=== PATIENT | male | born 1945 | race Caucasian/White ===

== ENCOUNTER → 2023-09-11 09:56 | Outpatient (REF) | payer MEDICARE, SELFPAY | LOC: HWRAD 09:56 | PROVIDERS: ATTENDING PHYSICIAN Specialist; FAMILY PHYSICIAN Family Medicine | DX: I10 Essential (primary) hypertension (principal) | CPT/HCPCS: 76770 ==

== ENCOUNTER → 2023-11-19 13:35 | Outpatient (REF) | payer MEDICARE, SELFPAY | LOC: MRI 3T 13:35 | PROVIDERS: ATTENDING PHYSICIAN Surgery; FAMILY PHYSICIAN Family Medicine | DX: R97.20 Elevated prostate specific antigen [PSA] (principal) | CPT/HCPCS: 72197; A9575 ==

== ENCOUNTER → 2023-12-12 13:03 | Outpatient (REF) | payer MEDICARE, SELFPAY | LOC: CLAB 13:03 | PROVIDERS: ATTENDING PHYSICIAN Surgery | DX: R97.20 Elevated prostate specific antigen [PSA] (principal) | CPT/HCPCS: 88305 ==

== ENCOUNTER 2024-05-07 10:33 | Emergency (ER) | payer MEDICARE, SELFPAY ==
[2024-05-07] VITALS (9 sets, daily range): BP systolic 102–147; BP diastolic 77–95; PULSE 89–95; BMI 28.2
[2024-05-07 11:17] LABS: % Basophils 0.3 % (0-2); % Eosinophils 3.3 % (0-6); % Immature Granulocytes 0.8 % (0-0.5); % Lymphocytes 9.7 % (20.5-51.1); % Monocytes 15.3 % (1.7-9.3); % Neutrophils 70.6 % (42.2-75.2); Absolute Eosinophils 0.1 10^3/uL (0-0.7); Absolute Lymphocytes 0.4 10^3/uL (1.2-3.4); Absolute Monocytes 0.6 10^3/uL (0.1-0.6); Absolute Neutrophils 2.8 10^3/uL (1.4-6.5); Hematocrit 37.1 % (39.0-52.0); Hemoglobin 12.8 g/dL (13.0-18.0); Mean Corp Hgb Conc. 34.5 g/dL (33.0-37.0); Mean Corpuscular Volume 89.8 fL (80.0-94.0); Mean Platelet Volume 11.4 fL (7.4-10.4); Nucleated Red Blood Cells % 0 % (-); Platelet Count 116 10^3/uL (130-400); Red Blood Cell Count 4.13 10^6/uL (4.70-6.10); Red Cell Dist. Width 14.3 % (11.5-14.5); White Blood Cell Count 3.9 10^3/uL (4.8-10.8)
[2024-05-07 11:26] LABS: ALT (SGPT) 25 U/L (0-50); AST (SGOT) 38 U/L (17-59); Albumin 3.8 g/dl (3.5-5.0); Alkaline Phosphatase 41 U/L (38-126); Blood Urea Nitrogen 27 mg/dl (9-20); Calcium 9.2 mg/dl (8.4-10.2); Carbon Dioxide 24 mmol/L (22-30); Chloride 99 mmol/L (98-107); Glucose 114 mg/dl (70-99); Potassium 3.8 mmol/L (3.5-5.1); Sodium 132 mmol/L (135-145); Total Bilirubin 0.9 mg/dl (0.2-1.3); Total Protein 6.2 g/dl (6.3-8.2); eGFR > 60.00
--- NOTE | 2024-05-07 14:50 | ED.GENMED ---
History of Present Illness
General
Chief Complaint: Dizziness
Source: patient
Time Seen by Provider: 05/07/24 14:31
History of Present Illness
History of Present Illness:
79-year-old male with past medical history of atrial relation status post pacer implantation, prostate cancer currently being treated with radiation and hormone therapy presents to the emergency department with his sister for evaluation after he was
going to his radiation appointment today and was found to have a rapid and irregular heartbeat, felt a little bit lightheaded and weak and was recommended to come to the ER for further evaluation. Sister reports that patient's aging box hand,
Cody, was notified and that is who advised patient to come to the ER reportedly. Patient has not had any fevers, URI-like symptoms, abdominal pain, nausea, vomiting, bowel changes or urinary symptoms. Sister notes that since patient started
the treatment he has been a little bit weaker than his usual which does not seem to be any different today. Sister does note that patient not had much to eat or drink today.
Past History
Past History
ED Past Medical History: Arrthythmia (afib on Eliquis), GERD, HTN, Hypercholesterolemia and Psychiatric (anxiety)
ED Past Surgical History: Cardiac (ablation for afib 11/01/21) and Other (colostomy w/ reversal)
Social History
Tobacco: Non-smoker
Alcohol: None
Drug: None
Personal:
Living: with family
Review of Systems
Review of Systems
All Other Systems: ROS reviewed and negative except as documented in HPI and ROS
Phy Exam
Physical Exam
Physical Exam:
GENERAL: Alert , in no apparent distress
EYE: clear conjunctiva
NECK: Supple
ENT: o/p clr, mmm.
CARDIAC: Irregularly irregular rate between 85 and 103 bpm
LUNGS: Clear breath sounds bilaterally, no acute respiratory distress,
ABDOMEN: Soft, without focal tenderness, no r/g, no cvat
NEUROLOGICAL: Alert and oriented x3
SKIN: Warm and dry, skin intact. somewhat pale
MUSCULOSKELETAL: No edema, well perfused.
PSYCH: Normal and appropriate interaction.
Scores
Heart Failure Risk
Heart Failure Risk Score: Not Applicable
Heart Score for Chest Pain Patients
STEMI patient?: Not applicable
Withdrawal Assessment of Alcohol
Withdrawal Assessment Completed?: Not applicable
Course
Orders/Labs/Results
Orders:
Orders
05/07/24 10:39
Electrocardiogram (*1) Urgent
Reason for Study: Vertigo / Dizzy
EKG- Treatment ONCE
05/07/24 10:51
Complete Blood Count/With Diff Urgent
Comprehensive Metabolic Panel Urgent
05/07/24 14:35
Orthostatic VS- Treatment ONCE
0.9% Sodium Chloride 1000 ml [Nss] 1,000 ml IV BOLUS
05/07/24 14:52
Interrogate Pacemaker- Treatment ONCE
05/07/24 14:57
COVID-19 Antigen Urgent
Source: Nasal Swab
Influenza A+B Rapid Molecular Urgent
NAKITA Source: Nasal Swab
Specimen Description:
Abnormal Lab Results
05/07/24
10:51
WBC 3.9 L 10^3/uL
(4.8-10.8)
RBC 4.13 L 10^6/uL
(4.70-6.10)
Hgb 12.8 L g/dL
(13.0-18.0)
Hct 37.1 L %
(39.0-52.0)
Plt Count 116 L 10^3/uL
(130-400)
MPV 11.4 H fL
(7.4-10.4)
Absolute Lymphs (auto) 0.4 L 10^3/uL
(1.2-3.4)
Immature Gran % 0.8 H %
(0-0.5)
Lymphocytes % 9.7 L %
(20.5-51.1)
Monocytes % 15.3 H %
(1.7-9.3)
Sodium 132 L mmol/L
(135-145)
BUN 27 H mg/dl
(9-20)
Glucose 114 H mg/dl
(70-99)
Total Protein 6.2 L g/dl
(6.3-8.2)
05/07/24 10:51
05/07/24 10:51
Vital Signs
Initial and Last Documented VS:
Initial Vital Signs
Temp Pulse Resp BP Pulse Ox
98.1 F 95 16 131/95 98
05/07/24 10:36 05/07/24 10:36 05/07/24 10:36 05/07/24 10:36 05/07/24 10:36
Last Documented Vital Signs
Temp Pulse Resp BP Pulse Ox
98.1 F 98 16 102/82 80
05/07/24 10:36 05/07/24 16:00 05/07/24 16:00 05/07/24 16:00 05/07/24 16:00
MDM/Problems Addressed
Differential Diagnosis Includes:
Atrial fibrillation with rapid ventricular response, medication side effect, dehydration, viral syndrome, other cardiac arrhythmia/dysrhythmia
MDM/Problems Addressed:
79-year-old male presenting to the emergency department for evaluation of what appears to be atrial fibrillation with rapid ventricular response that was noticed at radiation appointment today. By the time patient arrived to the ER his atrial
fibrillation appears to be rate controlled now. Patient reports some mild generalized weakness but has had this since starting his prostate cancer treatments. Hemodynamically stable. Labs ordered on arrival show a mild leukopenia of 3.9 which
could be either virally induced or related to current cancer treatments. There is a mild prerenal azotemia as well. EKG does show A-fib at a rate of 105 bpm but no acute ischemic changes. Will check viral studies and interrogate patient's
pacemaker. Disposition pending
Chronic conditions affecting care: Arrhythmia
Acute Exacerbation and/or Progression of Chronic Illness: Arrhythmia
*Pulse Oximetry
Patient hypoxic: no
*EKG
Heart Rate: 105
Rate: tachycardiac
Rhythm: a-fib
[place]: normal axis
Ischemia: T-wave inversion (V4 through V6)
*Wine [employer]chant Interpretation
Rate: normal
Rhythm: a-fib and PVC's
*Critical Care Note
Total Time (30-74mins, 75-104mins- exclusive of procedures): Not Applicable
Data Reviewed
Review of Other/Old Records Reveals: Labs and Records
Patient Management
Escalation/DeEscalation of care consider admission/obs:
Patient's pacemaker report shows episodes of atrial tachycardia/atrial fibrillation but no evidence for ventricular tachycardia or fibrillation. COVID and flu testing negative. Patient remains hemodynamically stable and at this time stable for
discharge home and continued outpatient management with his oncology team and primary care provider.
ED Attending Note
-
Portions of this chart may have been created with voice recognition software.� Occasional wrong word or��sound alike� substitutions may have occurred due to the inherent limitations of voice recognition software.
Discharge Plan
Departure
Patient Disposition: Home (Routine Discharge)
Date of Disposition: 05/07/24
Time of Disposition: 16:03
Patient with high blood pressure during this ER visit?: Yes
Discharge Problem:
Generalized weakness, Atrial fibrillation
Instructions: Weakness - ED discharge instructions
Prescriptions:
No Action
atorvastatin 10 MG tablet
10 mg PO DAILY@1200
enalapril maleate 20 MG tablet
20 mg PO BID
lorazepam 0.5 MG tablet
0.5 mg PO DAILYPRN PRN (Reason: anxiety)
amlodipine 10 MG tablet
10 mg PO DAILY@1200
fenofibrate nanocrystallized 48 MG tablet
48 mg PO DAILY@1200
Eliquis 5 MG tablet
5 mg PO BID
acetaminophen 500 mg Tablet
500 mg PO Q6H PRN (Reason: pain)
Systane (PF) 0.4-0.3 % Dropperette
1 drp OPHTHALMIC (EYE) 6XD PRN (Reason: dryness)
metoprolol succinate 50 mg tablet extended release 24 hr
50 mg PO BID Qty: 180 5RF
Referrals:
Dwight Metcalf, [Family Provider] -
Interventions
Interventions:
*Risk Screen - Suicide Last Done: 05/07/24 10:36
*General Assessment Last Done: 05/07/24 14:39
*Neglect/Abuse Screening Last Done: 05/07/24 10:36
*ED COVID-19 Vaccine History Last Done: 05/07/24 14:39
ED- Neurological Assessment Last Done: 05/07/24 14:39
Discharge Date and Time
Print Language: SALVADOREAN
[2024-05-07] MEDS: NSS 1000 IV (14:55)
[2024-05-07 15:28] LABS: COVID-19 Antigen Negative (Negative)
== END 2024-05-07 16:26 | disposition home or self-care (01) ==
LOC: EMR 10:33
PROVIDERS: Emergency Medicine; Physician Assistant Medical; EMERGENCY PHYSICIAN Emergency Medicine; FAMILY PHYSICIAN Family Medicine
DX: R53.1 Weakness (principal); I48.91 Unspecified atrial fibrillation; R42 Dizziness and giddiness; K21.9 Gastro-esophageal reflux disease without esophagitis; I10 Essential (primary) hypertension; E78.00 Pure hypercholesterolemia, unspecified; F41.9 Anxiety disorder, unspecified; Z79.01 Long term (current) use of anticoagulants; Z85.46 Personal history of malignant neoplasm of prostate; Z95.0 Presence of cardiac pacemaker
CPT/HCPCS: 99283; 96360; 80053; 85025; 87502; 87811; 93005

== ENCOUNTER → 2024-05-26 02:00 | Outpatient (REF) | payer MEDICARE, SELFPAY | LOC: MRI 02:00 | PROVIDERS: ATTENDING PHYSICIAN Family Medicine | DX: I48.91 Unspecified atrial fibrillation (principal); R41.3 Other amnesia | CPT/HCPCS: 70551 ==

== ENCOUNTER 2024-09-07 10:39 | Outpatient (RCR) | payer MEDICARE, SELFPAY | END 2024-09-07 23:59 | disposition home or self-care (01) | LOC: RPT 10:39 | PROVIDERS: ATTENDING PHYSICIAN Family Medicine Geriatric Medicine; FAMILY PHYSICIAN Internal Medicine | DX: C61 Malignant neoplasm of prostate (principal); Z79.818 Long term (current) use of other agents affecting estrogen receptors and estrogen levels | CPT/HCPCS: 97163; 97530 ==

== ENCOUNTER 2024-10-11 14:11 | Outpatient (RCR) | payer MEDICARE, SELFPAY | END 2024-10-11 23:59 | disposition home or self-care (01) | LOC: RPT 14:11 | PROVIDERS: ATTENDING PHYSICIAN Family Medicine Geriatric Medicine; FAMILY PHYSICIAN Internal Medicine | DX: C61 Malignant neoplasm of prostate (principal); R41.3 Other amnesia; N39.41 Urge incontinence; N39.43 Post-void dribbling; R15.9 Full incontinence of feces; R35.1 Nocturia; Z79.818 Long term (current) use of other agents affecting estrogen receptors and estrogen levels | CPT/HCPCS: 97110; 97112; 97116; 97530 ==

== ENCOUNTER 2024-11-09 13:54 | Outpatient (RCR) | payer MEDICARE, SELFPAY | END 2024-11-09 23:59 | disposition home or self-care (01) | LOC: RPT 13:54 | PROVIDERS: ATTENDING PHYSICIAN Family Medicine Geriatric Medicine; FAMILY PHYSICIAN Internal Medicine | DX: C61 Malignant neoplasm of prostate (principal); R41.3 Other amnesia; N39.41 Urge incontinence; N39.43 Post-void dribbling; R15.9 Full incontinence of feces; R35.1 Nocturia; Z79.818 Long term (current) use of other agents affecting estrogen receptors and estrogen levels | CPT/HCPCS: 97110; 97112; 97140; 97530 ==

== ENCOUNTER 2024-11-18 14:58 | Outpatient (RCR) | payer MEDICARE, SELFPAY | END 2024-11-18 23:59 | disposition home or self-care (01) | LOC: RPT 14:58 | PROVIDERS: ATTENDING PHYSICIAN Family Medicine Geriatric Medicine; FAMILY PHYSICIAN Internal Medicine | DX: C61 Malignant neoplasm of prostate (principal); R41.3 Other amnesia; N39.41 Urge incontinence; N39.43 Post-void dribbling; R15.9 Full incontinence of feces; R35.1 Nocturia; Z79.818 Long term (current) use of other agents affecting estrogen receptors and estrogen levels | CPT/HCPCS: 97112; 97530 ==

== ENCOUNTER 2024-12-02 13:46 | Outpatient (RCR) | payer MEDICARE, SELFPAY | END 2024-12-02 23:59 | disposition home or self-care (01) | LOC: RPT 13:46 | PROVIDERS: ATTENDING PHYSICIAN Psychiatry & Neurology Neurology; FAMILY PHYSICIAN Nurse Practitioner Family | DX: C61 Malignant neoplasm of prostate (principal); Z79.818 Long term (current) use of other agents affecting estrogen receptors and estrogen levels; R41.3 Other amnesia; N39.43 Post-void dribbling; R15.9 Full incontinence of feces; R35.1 Nocturia; Z73.6 Limitation of activities due to disability | CPT/HCPCS: 97163; 97530 ==

== ENCOUNTER 2025-01-14 09:17 | Outpatient (RCR) | payer MEDICARE, SELFPAY | END 2025-01-14 23:59 | disposition home or self-care (01) | LOC: RPT 09:17 | PROVIDERS: ATTENDING PHYSICIAN Psychiatry & Neurology Neurology; FAMILY PHYSICIAN Nurse Practitioner Family | DX: G20.A1 Parkinson's disease without dyskinesia, without mention of fluctuations (principal); Z73.6 Limitation of activities due to disability; R26.89 Other abnormalities of gait and mobility; R25.1 Tremor, unspecified | CPT/HCPCS: 97110; 97112; 97116; 97530 ==

== ENCOUNTER 2025-01-28 12:08 | Outpatient (RCR) | payer MEDICARE, SELFPAY | END 2025-02-11 10:26 | disposition home or self-care (01) | LOC: RPT 12:08 | PROVIDERS: ATTENDING PHYSICIAN Psychiatry & Neurology Neurology; FAMILY PHYSICIAN Nurse Practitioner Family | DX: G20.A1 Parkinson's disease without dyskinesia, without mention of fluctuations (principal); Z73.6 Limitation of activities due to disability; R26.89 Other abnormalities of gait and mobility; R25.1 Tremor, unspecified | CPT/HCPCS: 93460; 97110; 97112; 97116; 97530; 99152; 99153; C1769; C1894; Q9967 ==

== ENCOUNTER 2025-01-28 15:40 | Emergency (ER) | payer MEDICARE, SELFPAY ==
[2025-01-28 15:55] VITALS: BP 143/95
[2025-01-28 16:16] LABS: Hematocrit 39.9 % (39.0-52.0); Hemoglobin 13.1 g/dL (13.0-18.0); Mean Corp Hgb Conc. 32.8 g/dL (33.0-37.0); Mean Corpuscular Volume 92.4 fL (80.0-94.0); Nucleated Red Blood Cells % 0 % (-); Platelet Count 160 10^3/uL (130-400); Red Cell Dist. Width 18.5 % (11.5-14.5)
[2025-01-28 16:44] LABS: ALT (SGPT) < 10 U/L (0-50); AST (SGOT) 29 U/L (17-59); Albumin 4.2 g/dl (3.5-5.0); Alkaline Phosphatase 40 U/L (38-126); Blood Urea Nitrogen 30 mg/dl (9-20); Calcium 9.1 mg/dl (8.4-10.2); Carbon Dioxide 26 mmol/L (22-30); Chloride 100 mmol/L (98-107); Glucose 103 mg/dl (70-99); Potassium 4.0 mmol/L (3.5-5.1); Sodium 135 mmol/L (135-145); Total Protein 6.5 g/dl (6.3-8.2); eGFR 56.23
[2025-01-28 20:44] VITALS: BMI 26.2
[2025-01-28 20:46] VITALS: BP 150/94
--- NOTE | 2025-01-28 21:18 | ED.GENMED ---
History of Present Illness
General
Chief Complaint: Heart Rate Problem
Source: patient
Exam Limitations: none
Time Seen by Provider: 01/28/25 21:17
Nursing documentation reviewed up to this point in time: agreed with
History of Present Illness
History of Present Illness:
Patient is a 79-year-old male with history of A-fib on Eliquis presents to the ER for evaluation. Patient reports he was told physical therapy that his heart rate was 150 today. Last week his heart rate was elevated as well. Since then he saw his
family doctor and also was seen by cardiology([facility] cardiology on Friday 4 days ago) his metoprolol was increased from 50 mg twice daily to 75 mg twice daily. He is asymptomatic. Patient presented mildly tachycardic here however on exam
patient is in the 90s. No associated shortness of breath or chest pain. Patient was told and has been monitoring his heart rate at home and has been mostly under 100. Patient is on anticoagulation, Eliquis and has not missed a dose. Denies any
recent illness fever or chills.
Past History
Past History
ED Past Medical History: Arrthythmia (afib on Eliquis), GERD, HTN, Hypercholesterolemia and Psychiatric (anxiety)
ED Past Surgical History: Cardiac (ablation for afib 11/01/21) and Other (colostomy w/ reversal)
Social History
Tobacco: Non-smoker
Alcohol: None
Drug: None
Personal:
Living: with family
Phy Exam
General Physical Exam
General Presentation: no apparent distress
General age: appears stated age
General Skin: warm and dry
General Habitus: normal
General Mental: alert
General Hydration: appears well hydrated
Cardiovascular Exam
Cardiovascular Exam: occasionally irregular
Pulmonary Exam
Pulmonary Exam: lungs clear and no respiratory distress
Neurological Exam
Neurological Exam: alert and oriented x3
Musculoskeletal Exam
Musculoskeletal Exam: full ROM
Skin Exam
Skin Exam: normal color and warm/dry
Psychiatric Exam
Psychiatric Exam: normal mood/affect
Course
Orders/Labs/Results
Orders:
Orders
01/28/25 15:41
Electrocardiogram (*1) Urgent
Reason for Study: Atrial Fibrillation
01/28/25 15:42
EKG- Treatment ONCE
01/28/25 16:09
Complete Blood Count/With Diff Urgent
Comprehensive Metabolic Panel Urgent
Abnormal Lab Results
01/28/25
16:09
RBC 4.32 L 10^6/uL
(4.70-6.10)
MCHC 32.8 L g/dL
(33.0-37.0)
RDW 18.5 H %
(11.5-14.5)
MPV 11.3 H fL
(7.4-10.4)
Absolute Lymphs (auto) 0.4 L 10^3/uL
(1.2-3.4)
Absolute Monos (auto) 0.7 H 10^3/uL
(0.1-0.6)
Neutrophils % 79.0 H %
(42.2-75.2)
Lymphocytes % 7.6 L %
(20.5-51.1)
Monocytes % 11.8 H %
(1.7-9.3)
BUN 30 H mg/dl
(9-20)
Glucose 103 H mg/dl
(70-99)
01/28/25 16:09
01/28/25 16:09
Vital Signs
Initial and Last Documented VS:
Initial Vital Signs
Temp Pulse Resp BP Pulse Ox
98.6 F 101 16 143/95 97
01/28/25 15:55 01/28/25 15:55 01/28/25 15:55 01/28/25 15:55 01/28/25 15:55
Last Documented Vital Signs
Temp Pulse Resp BP Pulse Ox
98.6 F 97 17 150/94 93
01/28/25 15:55 01/28/25 21:45 01/28/25 21:30 01/28/25 20:46 01/28/25 21:45
Cargoman consulted with Physician
Cargoman consulted with physician?: Yes
Name of Physician Consulted: Santiago
MDM/Problems Addressed
Differential Diagnosis Includes:
Not limited to rapid A-fib
MDM/Problems Addressed:
Patient had a history of A-fib and was told his heart rate was elevated today at physical therapy. He was told his heart rate was 150. He had no complaints. Recently his Lopressor was increased from 50 mg twice daily to 75 mg twice daily. He
started this increased on Friday 4 days ago. He has seen both his per assessment nurse Dr. Hwang cardiology as well as his family doctor. Patient presents here awake alert no acute distress on my exam his heart rates in the 90s he is asymptomatic. He has
not skipped a dose of his Eliquis. He is well-appearing. He is afebrile with a normal white count stable hemoglobin BUN elevated however elevated in the past normal creatinine.
case d/c w/ ED physician will discharge home as he is controlled and anticoagulated instructed to follow-up with cardiology next week.
Chronic conditions affecting care:
A-fib on Eliquis.
*Pulse Oximetry
SaO2: 94
Oxygen Mode of Delivery: Room air
Patient hypoxic: no
*Critical Care Note
Total Time (30-74mins, 75-104mins- exclusive of procedures): Not Applicable
ED Attending Note
-
Portions of this chart may have been created with voice recognition software.� Occasional wrong word or��sound alike� substitutions may have occurred due to the inherent limitations of voice recognition software.
Discharge Plan
Departure
Patient Disposition: Home (Routine Discharge)
Date of Disposition: 01/28/25
Time of Disposition: 22:05
Patient with high blood pressure during this ER visit?: Yes
Condition: Fair
Covid-19: Not Applicable
Discharge Problem:
Atrial fibrillation
Instructions: Atrial Fibrillation (DC), BLOOD PRESSURE
Prescriptions:
No Action
atorvastatin 10 MG tablet
10 mg PO DAILY@1200
enalapril maleate 20 MG tablet
20 mg PO BID
lorazepam 0.5 MG tablet
0.5 mg PO DAILYPRN PRN (Reason: anxiety)
amlodipine 10 MG tablet
10 mg PO DAILY@1200
fenofibrate nanocrystallized 48 MG tablet
48 mg PO DAILY@1200
Eliquis 5 MG tablet
5 mg PO BID
acetaminophen 500 mg Tablet
500 mg PO Q6H PRN (Reason: pain)
Systane (PF) 0.4-0.3 % Dropperette
1 drp OPHTHALMIC (EYE) 6XD PRN (Reason: dryness)
metoprolol succinate 50 mg tablet extended release 24 hr
50 mg PO BID Qty: 180 5RF
Referrals:
Augie Flowers CRNP [Family Provider, Family Practice]
Nito Ross MD [Active, Cardiology]
Activity Restrictions/Additional Instructions:
As discussed to stay well-hydrated over the weekend avoid caffeine. Continue to take your new increased dose of metoprolol along with all of your other medicines. Call your per assessment nurse next week to be reevaluated. Return if any worsening of
symptoms.
Interventions
Interventions:
*Risk Screen - Suicide Last Done: 01/28/25 15:56
*General Assessment Last Done: 01/28/25 20:44
*Neglect/Abuse Screening Last Done: 01/28/25 15:56
*ED- Fall Risk Assessment Last Done: 01/28/25 20:44
*ED COVID-19 Vaccine History Last Done: 01/28/25 20:44
*ED Influenza Vaccine History Last Done: 01/28/25 20:44
ED- Cardiac Assessment Last Done: 01/28/25 20:44
ED- Pulmonary Assessment Last Done: 01/28/25 20:44
Discharge Date and Time
Print Language: IRISH
[2025-01-28 22:00] VITALS: BP 149/97
== END 2025-01-28 22:19 | disposition home or self-care (01) ==
LOC: EMR 15:40
PROVIDERS: Student in an Organized Health Care Education/Training Program; EMERGENCY PHYSICIAN Emergency Medicine; FAMILY PHYSICIAN Nurse Practitioner Family
DX: I48.91 Unspecified atrial fibrillation (principal); E78.00 Pure hypercholesterolemia, unspecified; F41.9 Anxiety disorder, unspecified; I10 Essential (primary) hypertension; Z79.01 Long term (current) use of anticoagulants; Z79.899 Other long term (current) drug therapy; Z93.3 Colostomy status; Z95.0 Presence of cardiac pacemaker
CPT/HCPCS: 99283; 80053; 85025; 93005

== ENCOUNTER 2025-02-07 20:24 | Inpatient (IN) | payer MEDICARE, SELFPAY ==
[2025-02-07] VITALS (11 sets, daily range): BP systolic 112–139; BP diastolic 76–106; BMI 26.7
--- NOTE | 2025-02-07 15:58 | ED.GENMED ---
History of Present Illness
General
Chief Complaint: Heart Rate Problem
Time Seen by Provider: 02/07/25 15:58
History of Present Illness
History of Present Illness:
FOCUSED PAST MEDICAL HISTORY
- Atrial fibrillation on Eliquis, Parkinson's
REVIEW OF OLD RECORDS
- I reviewed note from Mitul Humphreys NP indicating that the patient was seen by him earlier today and dose of metoprolol had been titrated up to 100 mg twice daily due to uncontrolled heart rate and was found to have heart rates in the
130s today. The sister also reported confusion over the weekend.
Note:
CHIEF COMPLAINT(S)
Confusion and increased shortness of breath.
HISTORY OF PRESENT ILLNESS
The patient is a 79-year-old male with a history of atrial fibrillation and Parkinsons disease presenting with confusion, increased shortness of breath, and coughing. His sister reports that the confusion has been ongoing over the weekend, worsening
after an Eligard injection, with hallucinations and increased confusion compared to previous injections. The patient typically experiences shortness of breath only with exertion, such as climbing steps, but currently experiences it at rest. He was
evaluated by his primary care physician today.
The patient was in the emergency department on January 28. During that visit, the patients heart rate was normalized before discharge. Since then, his symptoms have persisted and worsened, prompting today's visit. There is a concern about
dehydration, and his sister indicates he has been coughing and has experienced urinary symptoms like frequency and urgency since completing radiation for prostate cancer in May. The patient is also tachycardic with an irregular rhythm, exhibits
bradykinesia, and appears slightly confused but is answering questions appropriately.
PAST MEDICAL AND SURGICAL HISTORY
History of atrial fibrillation, Parkinsons disease, and prostate cancer treated with radiation.
CHRONIC MEDICAL CONDITIONS SIGNIFICANTLY AFFECTING CARE
1. Atrial fibrillation
2. Parkinsons disease
SOCIAL DETERMINANTS AFFECTING HEALTH
The sister reports that the patient lives at home.
MEDICATIONS
The patient is currently taking Apixaban (Eliquis) and has recently been increased to 100 mg of an unspecified medication twice daily upon consultation with Kate Flower.
REVIEW OF SYSTEMS
- Neurological: Confusion, hallucinations
- Respiratory: Shortness of breath at rest
- Urinary: Frequency and urgency ongoing since radiation treatment for prostate cancer
PHYSICAL EXAM
General: Alert, no acute distress.
Skin: Warm, dry. Appears somewhat pale
Head: Normocephalic, atraumatic.
Neck: Supple, trachea midline.
Eye, Ears, Nose, Mouth, and Throat: Oral mucosa moist.
Cardiovascular: Normal peripheral perfusion, no edema, tachycardia with irregular rhythm noted.
Respiratory: Respirations are non-labored.
Gastrointestinal: Abdomen nondistended.
Back: Normal range of motion, normal alignment.
Musculoskeletal: Equally decreased active ROM, normal strength.
Neurological: Alert and oriented but appears to be slightly confused at times, no focal neurological deficit observed. Evidence of bradykinesia.
Psychiatric: Cooperative, appropriate mood & affect.
PROBLEM LIST
Acute:
- Confusion
- Shortness of breath
- Tachycardia
Chronic:
- Atrial fibrillation
- Parkinsons disease
PLAN
1. Administer fluids to address possible dehydration.
2. Obtain blood work.
3. Conduct a computed tomography scan of the brain to evaluate confusion.
4. Perform a chest X-ray to investigate respiratory symptoms.
5. Administer medication to lower heart rate.
6. Collect urine sample for analysis.
DIFFERENTIAL DIAGNOSIS
The Differential Diagnosis includes, in no particular order and is not limited to:
1. Exacerbation of atrial fibrillation
2. Pulmonary embolism
3. Urinary tract infection
4. Dehydration
5. Congestive heart failure
6. Parkinsons disease-related complications
7. Medication side effects
8. Delirium
9. Hypoxia
10. Anemia
RADIOLOGY
- CT head personally reviewed and I see no hemorrhage
EKG
- A-fib rate of 107, occasional ventricular paced beats, lateral T wave abnormality
LABS
- CBC unremarkable, BNP 13,800, troponin 0.050, BUN 39
UPDATE
-SUMMARY OF ENCOUNTER
The patient was seen in the emergency department due to confusion, increased shortness of breath, and tachycardia. Upon evaluation, the patient was placed on a diltiazem drip to control the heart rate due to rapid atrial fibrillation. A CT scan of
the brain and a chest X-ray were performed, both showing no clear abnormalities according to my preliminary review, pending official radiologist reading. Elevated BNP levels were noted, indicating possible heart failure, leading to consideration of
admission for further management.
DISPOSITION
Admit
ASSESSMENT
Rapid atrial fibrillation with elevated BNP suggesting possible heart failure.
PLAN
Recommend inpatient admission to manage atrial fibrillation and further evaluate the elevated BNP levels.
INDEPENDENT REVIEW OF LABS AND INTERPRETATION OF TESTS
My independent review of the BNP test indicates elevated levels, suggesting potential heart failure.
My independent interpretation of the CT scan of the brain shows no clear abnormalities.
My independent interpretation of the chest X-ray shows no clear abnormalities.
MEDICATION RECONCILIATION
The patient is currently on a diltiazem drip to manage rapid atrial fibrillation.
MEDICAL DECISION MAKING
-Complexity of Data Reviewed: Chronic conditions affecting care [atrial fibrillation, Parkinson�s disease, prostate cancer] with consideration of potential heart failure based on elevated BNP levels.
-Data:
Category 1: Tests and documents reviewed include CT scan of the brain, chest X-ray, and BNP levels.
Category 2: Information was corroborated with assistance from the patients sister, who provided a history of the present illness and symptoms.
-Risk: Consideration of Admission/Observation: Escalation of care including admission/observation was considered given the complexity and risk of the patients presenting complaint, exam findings, and their underlying comorbidities. The elevated BNP
levels are of particular concern for heart failure. Admission is recommended for monitoring and management of atrial fibrillation and evaluation of heart failure.
DIAGNOSIS
-Rapid atrial fibrillation failing outpatient management
-Confusion
-Transient shortness of breath
Past History
Past History
ED Past Medical History: Arrthythmia (afib on Eliquis), GERD, HTN, Hypercholesterolemia and Psychiatric (anxiety)
ED Past Surgical History: Cardiac (ablation for afib 11/01/21) and Other (colostomy w/ reversal)
Social History
Tobacco: Non-smoker
Alcohol: None
Drug: None
Personal:
Living: with family
Phy Exam
Physical Exam
Physical Exam:
See HPI
Course
Orders/Labs/Results
Orders:
Orders
02/07/25 15:35
EKG [Electrocardiogram (*1)] Urgent
Reason for Study: Chest Pain
EKG- Treatment ONCE
02/07/25 15:51
Complete Blood Count/With Diff Urgent
Comprehensive Metabolic Panel Urgent
Magnesium Urgent
NT-proBNP Urgent
TSH Reflex To Free T4 Urgent
Troponin I Urgent
02/07/25 16:12
0.9% Sodium Chloride 500 ml [Nss] 500 ml IV BOLUS
02/07/25 16:13
CT Head W/o Iv Contrast Urgent
Comment:
Reason For Exam: alt ms
Diltiazem HCl [Cardizem] 10 mg IV NOW STA
CR Chest - 2 Views Urgent
Comment:
Reason For Exam: sob
02/07/25 16:15
Diltiazem 125 mg/125 ml Nss [Cardizem] 125 mg in 125 ml IV PER PROTOCOL
Initial dose in mg/hr, then titrate:: 5
Titrate to keep:: Heart rate 80-100 bpm
Titrate by mg/hr:: 5 mg/hr
Frequency of titrations (minutes):: 15
Maximum dose in mg/hr:: 15
02/07/25 17:15
Urinalysis Reflex To Culture Urgent
Date Specimen was Collected: 02/07/25
Time Specimen was Collected: 17:15
Urine Microscopic Reflex Cult Urgent
Urine Culture Urgent
NAKITA Source: U
Specimen Description:
Date Specimen was Collected: 02/07/25
Time Specimen was Collected: 17:15
Abnormal Lab Results
02/07/25 02/07/25
15:51 17:15
RBC 4.63 L 10^6/uL
(4.70-6.10)
MCHC 32.9 L g/dL
(33.0-37.0)
RDW 19.9 H %
(11.5-14.5)
MPV 11.8 H fL
(7.4-10.4)
Absolute Lymphs (auto) 0.3 L 10^3/uL
(1.2-3.4)
Immature Gran % 0.6 H %
(0-0.5)
Neutrophils % 80.2 H %
(42.2-75.2)
Lymphocytes % 6.1 L %
(20.5-51.1)
Monocytes % 11.7 H %
(1.7-9.3)
Sodium 134 L mmol/L
(135-145)
BUN 39 H mg/dl
(9-20)
Glucose 135 H mg/dl
(70-99)
Troponin I 0.050 H* ng/ml
Urine Ketones 1+ A
(Negative)
Ur Occult Blood Reflex 4+ A
(Negative)
Urine RBC 80-90 A /HPF
(0-2)
Urine Bacteria (Reflex) Many A
(Negative)
Urine Albumin (Reflex) 3+ A
(Neg - Trace)
02/07/25 15:51
02/07/25 15:51
Vital Signs
Initial and Last Documented VS:
Initial Vital Signs
Temp Pulse Resp BP Pulse Ox
36.7 C 136 20 135/106 96
02/07/25 15:37 02/07/25 15:37 02/07/25 15:37 02/07/25 15:37 02/07/25 15:37
Last Documented Vital Signs
Temp Pulse Resp BP Pulse Ox
36.7 C 91 17 134/99 94
02/07/25 15:37 02/07/25 19:00 02/07/25 19:00 02/07/25 19:00 02/07/25 16:25
*Pulse Oximetry
SaO2: 96
Oxygen Mode of Delivery: Room air
Patient hypoxic: no
*Critical Care Note
Total Time (30-74mins, 75-104mins- exclusive of procedures): Not Applicable
ED Attending Note
-
Portions of this chart may have been created with voice recognition software.� Occasional wrong word or��sound alike� substitutions may have occurred due to the inherent limitations of voice recognition software.
Discharge Plan
Departure
Prescriptions:
No Action
atorvastatin 10 MG tablet
10 mg PO QPM
enalapril maleate 20 MG tablet
20 mg PO BID
fenofibrate nanocrystallized 48 MG tablet
48 mg PO QPM
Eliquis 5 MG tablet
5 mg PO BID
metoprolol succinate [Toprol XL] 50 mg tablet extended release 24 hr
100 mg PO BID
donepezil 5 mg Tablet
5 mg PO HS
cyanocobalamin (vitamin B-12) 1,000 mcg Tablet
1,000 mcg PO DAILY
amlodipine [Norvasc] 2.5 mg Tablet
2.5 mg PO DAILY
carbidopa-levodopa 25-100 mg Tablet
1 tab PO TID@08,12,16
Eligard (3 month) 22.5 mg Syringe
22.5 mg SC [id number]
cholecalciferol (vitamin D3) [Vitamin D3] 25 mcg (1,000 unit) Tablet
25 mcg PO DAILY
mirabegron [Myrbetriq] 25 mg Tablet Extended Release 24 Hr
25 mg PO QPM
Referrals:
Augie Flowers CRNP [Family Provider, Family Practice]
Interventions
Interventions:
*General Assessment Last Done: 02/07/25 15:37
*Neglect/Abuse Screening Last Done: 02/07/25 17:00
*ED COVID-19 Vaccine History Last Done: 02/07/25 17:00
*ED Influenza Vaccine History Last Done: 02/07/25 17:00
ED- Cardiac Assessment Last Done: 02/07/25 16:41
ED- Pulmonary Assessment Last Done: 02/07/25 16:41
Discharge Date and Time
Print Language: YORUBA
[2025-02-07 16:03] LABS: Hematocrit 43.1 % (39.0-52.0); Hemoglobin 14.2 g/dL (13.0-18.0); Mean Corp Hgb Conc. 32.9 g/dL (33.0-37.0); Mean Corpuscular Volume 93.1 fL (80.0-94.0); Nucleated Red Blood Cells % 0.6 % (-); Platelet Count 153 10^3/uL (130-400); Red Cell Dist. Width 19.9 % (11.5-14.5)
[2025-02-07 16:17] LABS: ALT (SGPT) 10 U/L (0-50); AST (SGOT) 42 U/L (17-59); Albumin 4.3 g/dl (3.5-5.0); Alkaline Phosphatase 50 U/L (38-126); Blood Urea Nitrogen 39 mg/dl (9-20); Calcium 9.6 mg/dl (8.4-10.2); Carbon Dioxide 25 mmol/L (22-30); Chloride 102 mmol/L (98-107); Glucose 135 mg/dl (70-99); Magnesium 1.8 mg/dl (1.6-2.3); Potassium 3.7 mmol/L (3.5-5.1); Sodium 134 mmol/L (135-145); Total Protein 6.6 g/dl (6.3-8.2); eGFR 56.23
[2025-02-07 16:26] LABS: Troponin I 0.050 ng/ml
[2025-02-07] MEDS: NSS 500 IV (16:32)
[2025-02-07] MEDS: CARDIZEM 125 IV (16:33)
[2025-02-07] MEDS: CARDIZEM 10 MG IV (16:33)
[2025-02-07 17:23] LABS: Urine Character Clear (Clear)
[2025-02-07 17:28] LABS: Urine Red Blood Cell 80-90 /HPF (0-2); Urine Squamous Cell 0-2 /LPF (Few)
--- NOTE | 2025-02-07 19:25 | HPS.HSE ---
Family Physician
-
Family Physician: PAULA Conde
Chief Complaint
-
Elevated heart rate, shortness of breath, increased confusion
History of Present Illness
79-year-old male brought by his sister for increased confusion, shortness of breath and coughing over the weekend after an Eligard injection. She also reports he had hallucinations that been going on since November after starting carbidopa
levodopa for Parkinson's.. He has history of dementia. He was noted to be in rapid A-fib with RVR heart rate 150 bpm possibly has not been taking his increased dose of metoprolol due to confusion of meds. His sister was concerned about
dehydration has also been experience frequency urgency since completing radiation for prostate cancer in May. He spoke with cardiology on 01 21 his metoprolol was increased to 75 mg twice daily then the the patient was seen at [facility]
cardiology on 01/24/2025 due to elevated heart rate 150 at physical therapy his metoprolol was increased to 100 mg twice daily. He was seen in the ER on 01/28/2025 with heart rate in the 90s he was discharged on his increased dose metoprolol
succinate 100 mg twice daily instructed to avoid caffeine and follow-up with cardiology. Today he was seen by his general practitioner where he was noted to be tired short of breath and tachycardic with heart rate of 150 bpm. His sister states he
has had some increased confusion over this weekend would not allow her to touch his medications she found him in his room with multiple medications on his dresser. She is unsure whether he has been mixing them up or taking them appropriately.
Patient is oriented to name, place, history he denies headache, dizziness, chest pain, palpitations, cough, shortness of breath, abdominal pain, nausea, vomit, diarrhea, urinary symptoms.
He has past medical history of A-fib, A-fib ablation 11/03/2021, Dementia, Anxiety Parkinson's disease, HTN, HLD, GERD, tachy/bradycardia syndrome status post pacemaker 12/04/2022, prostate cancer s/p radiation May 2024 with chronic urinary
frequency and urgency, colostomy with reversal, MIKE noncompliant with CPAP, former smoker
Medical History
Past Medical History
Past Medical History: Reports Other
Additional Past Medical History:
1. Persistent atrial fibrillation, status post cardioversion x4 and ablation 10/2021; pharmacological therapy with Metoprolol Succinate, oral anticoagulation with Eliquis.
2. 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
3. Hypertension.
4. Dyslipidemia.
5. Obstructive sleep apnea, non-compliant with CPAP.
6. Diverticulitis, status post colostomy and subsequent reversal 2002.
7. Arthritis.
8. BPH.
9. Prediabetes.
10. Anxiety.
11. Bilateral dry eyes.
12. Remote history of tobacco abuse.
13. Prostate cancer status post radiation May 2024 with chronic urinary frequency urgency
Past Surgical History: Reports Other
Additional Past Surgical History:
1. Cardioversion x4.
2. Atrial fibrillation ablation.
3. Pacemaker insertion.
4. Colostomy, appendectomy.
5. Colostomy reversal.
6. Colonoscopy.
Social History
Tobacco: Former Smoker (Quit tobacco products remotely. )
Alcohol: None
Personal: Single
Living: With Family (Sister Jovita)
Family History
Family History: Not pertinent
Allergies / Home Medications
Allergies reflects when Allergies were last updated in [employer].
Home Medications with original date entered in [facility]
Allergy/Medication List:
Allergies
Allergy/AdvReac Type Severity Reaction Status Date / Time
No Known Allergies Allergy Verified 02/07/25 15:37
Home Medications
apixaban 5 mg tablet (Eliquis) 5 mg PO BID Blood Clot Prevention/Tx 09/07/21
atorvastatin 10 mg tablet 10 mg PO QPM High Cholesterol 09/07/21
enalapril maleate 20 mg tablet 20 mg PO BID Blood Pressure 09/07/21
fenofibrate nanocrystallized 48 mg tablet 48 mg PO QPM High Cholesterol 09/07/21
amlodipine 2.5 mg tablet (Norvasc) 2.5 mg PO DAILY Blood Pressure 02/07/25
carbidopa 25 mg-levodopa 100 mg tablet 1 tab PO TID@08,12,16 02/07/25
cholecalciferol (vitamin D3) 25 mcg (1,000 unit) tablet (Vitamin D3) 25 mcg PO DAILY Supplement 02/07/25
cyanocobalamin (vitamin B-12) 1,000 mcg tablet 1,000 mcg PO DAILY Supplement 02/07/25
donepezil 5 mg tablet 5 mg PO HS Mental Health/Anxiety 02/07/25
leuprolide acetate (3 month) 22.5 mg (3 month) subcutaneous syringe (Eligard) 22.5 mg SC [id number] 02/07/25
metoprolol succinate 50 mg tablet,extended release 24 hr (Toprol XL) 100 mg PO BID Heart Disease/Condition 02/07/25
mirabegron 25 mg tablet,extended release 24 hr (Myrbetriq) 25 mg PO QPM Urinary Issue 02/07/25
Review of Systems
-
History Source: Patient and Family (Sister Jovita at bedside)
A 12 point ROS was completed and negative except as noted: Yes
Constitutional: Denies Fatigue
EENT: Denies Mouth Pain or Runny Nose
Respiratory: Reports Trouble Breathing (With elevated heart rate); Denies Cough
Cardiac: Denies Chest Pain, Diaphoresis or Palpitations
Abdomen/GI: Denies Abdominal Pain, Nausea, Vomiting, Diarrhea or Constipated
: Reports Dysuria (Chronic post prostate radiation) and Frequency (Chronic post prostate radiation)
Musculoskeletal: Reports Edema (Trace bilateral lower legs); Denies Joint Pain
Skin: Denies Itching or Rash
Neurological: Denies Dizzy or Headache
Endocrine: Reports No Symptoms
Hematologic/Lymphatic: Reports No Symptoms
Psych: Reports Calm
Physical Exam
Vital Signs
Vital Signs
Temp Pulse Resp BP Pulse Ox
98.0 F 91 17 134/99 94
02/07/25 15:37 02/07/25 19:00 02/07/25 19:00 02/07/25 19:00 02/07/25 16:25
Physical Exam
General: Comfortable and Conversant
HEENT: NormoCephalic, Moist mucous membranes, PERRLA, [place] Conjunctivae and No Ptosis
Respiratory: Clear; No Wheezes, Rales or Rhonchi
Cardiac: S1/S2 and Irregular Rhythm (A-fib current heart rate 90 bpm on IV Cardizem prior 150 bpm); No Murmur, Rub or Gallop
Breast: Deferred by me
GI: Soft, Non Tender, Non Distended, Normal Bowel Sounds and No Hepatosplenomegaly
Rectal: Deferred by Provider
Genito-urinary: Deferred by me
Musculoskeletal: No Clubbing, No Cyanosis, Edema, Left Lower Extremity (Trace lower ankles) and Edema, Right Lower Extremity (Trace lower ankles); No Edema, Left Upper Extremity or Edema, Right Upper Extremity
Skin: Warm and Dry; No Rash
Neuro: AO x 3, No Motor Deficits, Cranial Nerves Intact and No Sensory Deficits; No Slurred Speech, Facial Droop, Tremors or Sedated
Psych: Calm
Laboratory Results
-
02/07/25 15:51
02/07/25 15:51
Laboratory Results
Total Bilirubin 1.3 mg/dl (0.2-1.3) 02/07/25 15:51
AST 42 U/L (17-59) 02/07/25 15:51
ALT 10 U/L (0-50) 02/07/25 15:51
Alkaline Phosphatase 50 U/L (38-126) 02/07/25 15:51
Troponin I 0.050 ng/ml H* 02/07/25 15:51
Impression/Plan
-
Impression/plan:
Admit to IVU
A-fib with RVR likely secondary to missed meds/history A-fib
History of cardioversion x 4
- Heart rate 130s thought to be due to confusing his medications possibly not taking outpatient beta-ainsley that was recently increased
- IV Cardizem 10 mg bolus with Cardizem drip
- Resume Eliquis 5 mg twice daily
- Consult cardiology�CBC
- Hold current metoprolol 100 mg twice daily this has been increased twice since 01/21/2025
-Hold amlodipine 2.5 mg daily, enalapril 20 mg twice daily
- Check 2D echo
--Restart metoprolol succinate 50 mg twice daily
#Troponin elevation secondary ischemic demand from A-fib with RVR
Troponin 0.050 will trend
- Follow EKG
#Acute CHF secondary to rapid A-fib with RVR
I/O, daily
Patient was given 1000 cc NSS in ER due to sister reporting dehydration will hold further IV fluid
Check 2D echo
CXR: Mild pulmonary vascular congestion trace bilateral pleural fluid
#Tachy/bradycardia syndrome status post pacemaker 12/04/2022
#Dementia short-term memory impairment
-Continue donepezil 5 mg at bedtime
#Anxiety
No current medications
HTN
BP 134/99
-Restart metoprolol succinate 50 mg twice daily
Patient currently on IV Cardizem drip for A-fib with RVR
Will hold additional BP meds�enalapril 20 mg twice daily, metoprolol succinate 100 mg twice daily
Norvasc 2.5 mg daily
#Parkinson's disease with history of vivid dreams and visual hallucinations since November
Continue carbidopa levodopa takes 3 times daily
Sister to follow-up with neurologist regarding above hallucinations and vivid dreams
#HLD
-Continue fenofibrate, atorvastatin 10 mg every afternoon
#Prostate cancer s/p radiation May 2024 with chronic urinary frequency and urgency,
#Overactive bladder
Continue Myrbetriq 25 mg every afternoon
#MIKE noncompliant with CPAP
Former smoker
Other PMH:
colostomy with reversal
DVT prophylaxis
Resume Eliquis
Full code
--- NOTE | 2025-02-07 20:20 | W.PN.UPDATE ---
Update Note
Progress Note Update
Patient seen in conjunction with nurse practitioner. I agree with the findings on history and physical. And cooperative with the assessment and plan unless stated otherwise.
Briefly, this is a 79-year-old with past medical history significant for atrial fibrillation anticoagulation status post multiple ablations and cardioversions now status post pacemaker placement, hypertension, hyperlipidemia, history of prostate
cancer status post XRT and currently on Lupron and Eligard, BPH and some urinary incontinence and frequency, no known CHF presents to the emergency department with uncontrolled atrial fibrillation.
According to family members patient has been inconsistently taking his medications due to confusion in the setting of increasing doses of LOWER left lobe. He is also has increased metoprolol prescribed over the last few weeks now he is on 100 mg
p.o. twice daily. Patient was at follow-up with his PMD when he was found to have some shortness of breath and was tachycardic to the 150s. Is unknown the last time he actually took his medications appropriately.
He arrived in the emergency department he had tachycardic to 130s, blood pressure was stable at 134/90. Oxygen saturation of 94% on room air. ECG shows atrial fibrillation with rapid ventricular response at 107 with T wave inversions in V 4
through 6. Chest x-ray shows mild pulmonary edema. Troponin is elevated at 0.05. BNP 13,800. CBC is unremarkable. Electrolytes BUN/creatinine are in the normal range.
In the Emergency Department patient was given a bolus of IV fluids plus diltiazem bolus and started on a drip. He is now rate controlled in the 90s.
Assessment and plan
Atrial fibrillation with rapid ventricular response
- Rapid A-fib suspect secondary to noncompliant with medications
- Rate improved on diltiazem, continue diltiazem drip for now
� Continue with metoprolol at a dose of 50 mg succinate twice daily and monitor, increase dose as bp tolerates
� TSH within normal limits
� Echo in a.m.
� Cardiology consult
� Hold amlodipine, enalapril
- Monitor oxygenation, can give Lasix 20 mg IV if needed for shortness of breath.
Mental status -dementia with Parkinson's disease, and no signs of acute infection
- UA with RBCs likely secondary to Eliquis and history of radiation, monitor for now
- Continue carbidopa-levodopa
� Continue with donepezil
DVT prophylaxis�on Eliquis
CODE STATUS�full code
[2025-02-07] MEDS: ELIQUIS 5 MG PO (22:53)
[2025-02-07] MEDS: ARICEPT 5 MG PO (22:54)
[2025-02-07 23:31] LABS: Troponin I 0.050 ng/ml
[2025-02-08] VITALS (9 sets, daily range): BP systolic 123–140; BP diastolic 79–105; PULSE 91; O2SAT 95; BMI 26.6
[2025-02-08 05:17] LABS: Hematocrit 40.9 % (39.0-52.0); Hemoglobin 13.6 g/dL (13.0-18.0); Mean Corp Hgb Conc. 33.3 g/dL (33.0-37.0); Mean Corpuscular Volume 95.1 fL (80.0-94.0); Nucleated Red Blood Cells % 0.4 % (-); Platelet Count 148 10^3/uL (130-400); Red Cell Dist. Width 19.6 % (11.5-14.5)
[2025-02-08 05:26] LABS: ALT (SGPT) 12 U/L (0-50); AST (SGOT) 40 U/L (17-59); Albumin 4.1 g/dl (3.5-5.0); Alkaline Phosphatase 38 U/L (38-126); Blood Urea Nitrogen 36 mg/dl (9-20); Calcium 9.2 mg/dl (8.4-10.2); Carbon Dioxide 27 mmol/L (22-30); Chloride 102 mmol/L (98-107); Estimated Creatinine Clearance 42 ml/min; Glucose 92 mg/dl (70-99); HDL Cholesterol 32 mg/dl; LDL Cholesterol, Calculated 41 mg/dl; Magnesium 1.8 mg/dl (1.6-2.3); Potassium 3.6 mmol/L (3.5-5.1); Sodium 137 mmol/L (135-145); Total Protein 6.5 g/dl (6.3-8.2); Very Low Density Lipoprotein 15 mg/dl (0-30); eGFR > 60.00
[2025-02-08 05:44] LABS: Troponin I 0.051 ng/ml
--- NOTE | 2025-02-08 06:03 | PTCARENOTE ---
At approx 21:50. Received pt from ED via stretcher into room 2249 w/ pts sister (Jovita) at bedside. Pt answered orientation q's appropriately. Tele monitor applied-- Afib and occasional Vpaced & PVCs. Denies any chest discomfort. Cardizem gtt
infusing at 5mg/hr. Patient voiding willi color urine. Pt reports he ambulates w/ cane or RW at home. His sister brought his personal cane home. Reviewed POC w/ patient and pts sister Jovita. Bed alarm active, d/t pt w/ hx of dementia per H&P.
At approx 05:50 Patient yelling 'nurse'. Patient reports a 'A kid came running in here, and knocked over my pee bottle'. Urinal bottle remained on table next to bed, and pts water cup was lying in bed next to pt. This RN reoriented patient to place
and situation. Bed alarm remains active. Call bhat within reach.
[2025-02-08 06:28] LABS: Hepatitis C Antibody Negative (Negative)
--- NOTE | 2025-02-08 07:49 | CON.CAR ---
Addendum entered and electronically signed by Geronimo Chisholm MD 02/08/25 11:23:
I saw and evaluated the patient, and I provided the substantive portion of the medical decision making.
I reviewed and agree with the note by Ms Fontana and it accurately reflects our care.
I personally performed the medical decision making of the this encounter and my assessment and plan is below:
AF RVR
- cont metop 100 bid
- Dilt 120 possibly if HRs are elevated
HF
- IV diuresis today
Original Note:
Consultation
Consultation Request
Date/Time Consultation Requested: 02/07/2025 22:30
Date/Time Consultation Performed: 02/08/2025 07:50
Requesting Provider: PAULA Wallace
Performing Provider: PAULA Stiles for Dr. Chisholm
Reason for Consultation: Atrial fibrillation with rapid ventricular response
Medical History
-
Chief Complaint: Elevated heart rate, confusion
History of Present Illness:
Mr. Olea is a 79-year-old male� with permanent atrial fibrillation (status-post previous ablation on 11/03/2021, subsequent cardioversions on 08/21/2022 and 10/09/2022, redo ablation on 01/07/2023, and subsequent cardioversion 01/24/2023 with
reversion back to atrial fibrillation; currently on Eliquis), tachycardia-bradycardia syndrome status-post Medtronic dual-chamber pacemaker implantation (on 11/28/2022), hypertension, hyperlipidemia, prediabetes, and CKD (followed by nephrology-
Kristi), who presented with elevated heart rate and confusion. During this consultation, the patient was very confused. He went back and forth between stating this was a hospital then a restaurant. He was actively trying to climb out of bed. There
were challenges reorienting him to his surroundings. He did deny chest pain, dizziness, and shortness of breath.
Past Medical History
Past Medical History: Arrhythmias (Permanent atrial fibrillation), HTN, Hypercholesterolemia and Renal Failure (CKD)
Past Surgical History: Appendectomy
Social History
Tobacco: Former Smoker
Living: With Family
Employment: Retired
Family History
Family History: Reviewed & Not Pertinent
Allergies / Home Medications
Allergy/AdvReac Type Severity Reaction Status Date / Time
No Known Allergies Allergy Verified 02/07/25 15:37
�Medication �Instructions �Recorded �Confirmed �Type
apixaban 5 mg tablet (Eliquis) 5 mg PO BID Blood Clot 09/07/21 02/07/25 History
Prevention/Tx
atorvastatin 10 mg tablet 10 mg PO QPM High Cholesterol 09/07/21 02/07/25 History
enalapril maleate 20 mg tablet 20 mg PO BID Blood Pressure 09/07/21 02/07/25 History
fenofibrate nanocrystallized 48 mg 48 mg PO QPM High Cholesterol 09/07/21 02/07/25 History
tablet
amlodipine 2.5 mg tablet (Norvasc) 2.5 mg PO DAILY Blood Pressure 02/07/25 02/07/25 History
carbidopa 25 mg-levodopa 100 mg 1 tab PO TID@08,12,16 02/07/25 02/07/25 History
tablet
cholecalciferol (vitamin D3) 25 25 mcg PO DAILY Supplement 02/07/25 02/07/25 History
mcg (1,000 unit) tablet (Vitamin
D3)
cyanocobalamin (vitamin B-12) 1,000 mcg PO DAILY Supplement 02/07/25 02/07/25 History
1,000 mcg tablet
donepezil 5 mg tablet 5 mg PO HS Mental Health/Anxiety 02/07/25 02/07/25 History
leuprolide acetate (3 month) 22.5 22.5 mg SC [id number] 02/07/25 02/07/25 History
mg (3 month) subcutaneous syringe
(Eligard)
metoprolol succinate 50 mg 100 mg PO BID Heart 02/07/25 02/07/25 History
tablet,extended release 24 hr Disease/Condition
(Toprol XL)
mirabegron 25 mg tablet,extended 25 mg PO QPM Urinary Issue 02/07/25 02/07/25 History
release 24 hr (Myrbetriq)
Review of Systems
-
Unable to obtain full review of systems at this time due to: Dementia
History Source: Patient
Physical Exam
Vital Signs
Temp Pulse Resp BP Pulse Ox
97.7 F 93 18 129/79 93
02/08/25 04:04 02/08/25 06:00 02/08/25 04:04 02/08/25 04:03 02/08/25 04:04
Lab Results
02/08/25 04:34
02/08/25 04:34
Troponin I 0.051 ng/ml H* 02/08/25 04:34
Jnn-E-Cjbkywyjcml Pept 72870 pg/ml 02/07/25 15:51
Physical Exam
General: Well Developed, Well Nourished, No Apparent Distress and Comfortable
HEENT: Normocephalic, Anicteric and Moist Mucous Membranes
Respiratory: Clear and Non Labored Respirations
Cardiac: S1/S2 and Irregular Rhythm
Breast: Deferred by me
GI: Soft, Non Tender, Non Distended and Normal Bowel Sounds
Rectal: Deferred by Provider
Genito-urinary: No Costovertebral Tender
Musculoskeletal: No Clubbing, No Cyanosis and No Edema
Skin: Warm and Dry
Neuro: Awake and Alert
Psych: Confused
Impression / Plan
-
I/P: 79M with permanent atrial fibrillation, tachycardia-bradycardia syndrome status-post Medtronic dual-chamber pacemaker implantation (on 11/28/2022), hypertension, hyperlipidemia, prediabetes, and CKD (followed by nephrology-Dr. Berry), who
presented with elevated heart rate and confusion.
Primary film composer: Dr. Ross
Heart failure, presumed HFpEF, new diagnosis
- Elevated proBNP, orthopnea, and pulmonary congestion on CXR
- He does not appear grossly volume overloaded, furosemide 40 mg IV x 1 now, this requires intensive monitoring
- Would not start SGLT2 until UTI ruled out, he has an abnormal UA
- Echocardiogram
- Trend daily weight, I/O, and BMP with diuresis
Permanent atrial fibrillation, with RVR
- Plan for rate control, no plans to restore sinus rhythm
- Resume metoprolol succinate 100 mg twice daily
- Continue diltiazem drip, hopeful we can transition this off
- Oral Anticoagulation: Eliquis, 5 mg twice daily, with his confusion unclear whether he had missed doses
- [id number]: Score at least 3 (HTN, age 75 or more)
Abnormal troponin, nonischemic myocardial injury in the setting of atrial arrhythmia
- Troponin flat
- EKG stable, no chest pain
Confusion, per primary service
Hypertension
- BP stable, follow with rate control
Tachycardia/bradycardia syndrome status post PPM 12/04/2022
Hypercholesterolemia, LDL at goal, continue current dose of atorvastatin and fenofibrate
Parkinson's disease, chronic
Prostate cancer, completed XRT
MIKE, does not tolerate CPAP
Former smoker, continued cessation recommended
Data Reviewed
-
EKG: Report Reviewed by me
Medical Tests (Nuc Med, Echo etc): Report Reviewed by me
Labs: Labs Reviewed by me
Old Records: Reviewed
[2025-02-08] MEDS: VITAMIN B-12 1000 MCG PO (08:51)
[2025-02-08] MEDS: LASIX 40 MG IV (08:51)
[2025-02-08] MEDS: ELIQUIS 5 MG PO (08:52)
[2025-02-08] MEDS: VITAMIN D3 (cholecalciferol) 25 MCG PO (08:52)
[2025-02-08] MEDS: TOPROL XL 100 MG PO ×2 (08:52→19:15)
[2025-02-08] MEDS: SINEMET 25-100 1 TABLET PO ×3 (09:00→15:59)
--- NOTE | 2025-02-08 11:24 | PTCARENOTE ---
received patient in bed this am, confused to place and time. reoriented frequently. patient wanted to get OOB, assist of 1 to chair, alarm placed for safety. monitor shows V paced, VSS. IV Cardizem @ 5ml/hr via left arm. IV Lasix given to patient as
ordered, diuresing well. spoke to patients sister for update. patient presently sitting in chair eating breakfast with chair alarm on and patient has pushed button to let us aware that he needs to use the urinal.
--- NOTE | 2025-02-08 11:28 | PTCARENOTE ---
SANTOS Ontiveros/C'mario, as ordered.
--- NOTE | 2025-02-08 12:21 | W.PN.HOSP.TC ---
Today's Communication/Plan
-
Echocardiogram
PT consult
Assessment / Plan
Assessment / Plan
Gen-awake, alert, confused, NAD
HEENT-NC, AT, anicteric, clear oral mm
Neck-supple
CV-reg, no M, +S1/S2
Lungs-clear B/L
Abd-soft, NT, ND
Ext-no edema
Musculoskeletal-no cyanosis, clubbing
Skin-warm and dry
Neuro-grossly non-focal
Psych-calm, cooperative
Acute heart failure exacerbation -unknown type of CHF. Received a dose of IV Lasix today. Cardiology following. Echocardiogram pending.
Appears to be a new diagnosis of heart failure.
BNP 13,800. Chest x-ray with mild pulmonary vascular congestion, trace bilateral pleural fluid.
Troponin elevation -suspect due to acute nonischemic myocardial injury due to rapid heart rate.
Permanent atrial fibrillation -presentation with RVR. Rates now improved. Continue Eliquis, metoprolol. Off Cardizem drip now.
Has had multiple cardioversions in the past as well as ablation.
TSH 1.14.
Hyponatremia -present on admission. Resolved.
Tachybradycardia syndrome -s/p permanent pacemaker, 12/04/2022.
Parkinson's disease -stable. Continue Sinemet.
Dementia -suspect Lewy body dementia. Spoke with family and they mention that he does have increasing confusion over the past few weeks and months, hallucinations. Recommend outpatient follow-up with his neurologist, Dr. Sterling.
Hyperlipidemia -atorvastatin, Tricor.
Essential hypertension -stable.
History of prostate cancer -gets leuprolide injections every 3 months. Had radiation in the past.
Urinalysis shows hematuria with RBCs and positive blood. No evidence of pyuria or infection. Urine culture dated 02/07 no growth.
BPH
MIKE -intolerant of CPAP.
Diverticulosis
Former smoker
Full code
Spoke with patient's sister on the phone, Jovita, answered all questions. Patient lives with his sister.
Anticipated Discharge: Within 24 hours
Subjective/Interval History
-
Date of Service: February 08, 2025
Patient seen and examined. No complaints. Feeling better.
Objective Data
-
Labs:
Laboratory Results
02/08/25
04:34
WBC 5.2
Hgb 13.6
Hct 40.9
Plt Count 148
Sodium 137
Potassium 3.6
Chloride 102
Carbon Dioxide 27
BUN 36 H
Creatinine 1.2
Glucose 92
Calcium 9.2
Total Bilirubin 1.3
AST 40
ALT 12
Alkaline Phosphatase 38
Vital Signs:
Vital Signs
Temp Pulse Resp BP Pulse Ox
97.7 F 114 18 140/87 95
02/08/25 08:02 02/08/25 09:00 02/08/25 08:02 02/08/25 08:52 02/08/25 08:30
I&O
02/07/25 02/08/25 02/09/25
06:59 06:59 06:59
Intake Total 290 / 290
Output Total 200 / 200 250 / 250
Balance 90 / 90 -250 / -250
Review of Systems
-
History Source: Patient
All other systems: Reviewed and negative
--- NOTE | 2025-02-08 13:42 | CM ---
Reviewed chart. Met with Mr. Olea and spoke with his sister Jovita via phone. He states prior to admission he resides with his sister in a two story home with two steps to enter. He states he has a full flight of steps to get to
bedroom/full bathroom. He states he has a powder room on the first floor. He states prior to admission he ambulates with a single point cane or without any assisted device. His sister states he also has two walkers that he refuses to use. He
states he does not have any help in the home. Reviewed [facility] Services with his sister. She is agreeable to [facility] if indicated. She states he went to outpatient therapy for pelvic floor exercises and then to the [facility].
He was going only twice a week instead of the four day a week. She states he has a prescription plan and uses [facility]. Await physical therapy evaluation to see if he will have any skilled care needs. Sister would also like information on
Living will, and private caretakers. Medical work-up in progress. The discharge plan is to return home with his sister and [facility] when medically stable.
--- NOTE | 2025-02-08 15:31 | PTCARENOTE ---
Echo being completed at bedside.
[2025-02-08] MEDS: LIPITOR 10 MG PO (16:55)
[2025-02-08] MEDS: DETROL LA 2 MG PO (16:55)
[2025-02-08] MEDS: TRICOR 48 MG PO (16:55)
--- NOTE | 2025-02-08 16:56 | PTCARENOTE ---
Dr. Chisholm came in to room and talked to patient and patients sister on phone that he will be NPO after MN for heart cath in am. patient continue to be inc. of urine, patient has his own depends. i encouraged to use urinal during hourly rounds.
patient remains confused, sister said that this is his baseline.
[2025-02-08 20:09] LABS: Blood Urea Nitrogen 38 mg/dl (9-20); Calcium 9.6 mg/dl (8.4-10.2); Carbon Dioxide 31 mmol/L (22-30); Chloride 99 mmol/L (98-107); Estimated Creatinine Clearance 39 ml/min; Glucose 116 mg/dl (70-99); Magnesium 1.9 mg/dl (1.6-2.3); Potassium 3.8 mmol/L (3.5-5.1); Sodium 136 mmol/L (135-145); eGFR 56.23
--- NOTE | 2025-02-08 20:56 | PTCARENOTE ---
At approx 18:50 Patient had a brief episode of 16 beat NSVT. Upon assessment pt sitting in chair, and denies any chest discomfort or palpitations. Edu FELLED SEAM OPERATOR aware, and orders obtained for labs. This RN assisted pt back to bed, denies any
lightheadedness. Has generalized weakness. K 3.8 and Mag 1.9, Edu FELLED SEAM OPERATOR aware and on unit. No new orders obtained. Pt AAOx2 and can be confused and forgetful at times. Reoriented pt to place and situation. Aware to maintain NPO status at
midnight for plan R/L heart cath on 02/09. Tele remains Afib w/ PVCs and occasionally Vpaced. Pt ROSENBERG and sating 96% RA. Lungs decreased in the right base. Bed alarm remains active, and call bhat in reach.
[2025-02-08] MEDS: ARICEPT 5 MG PO (22:03)
[2025-02-09] VITALS (16 sets, daily range): BP systolic 113–154; BP diastolic 57–138; BMI 26.1
[2025-02-09 04:40] LABS: Hematocrit 42.3 % (39.0-52.0); Hemoglobin 14.1 g/dL (13.0-18.0); Mean Corp Hgb Conc. 33.3 g/dL (33.0-37.0); Mean Corpuscular Volume 95.5 fL (80.0-94.0); Nucleated Red Blood Cells % 0.3 % (-); Platelet Count 147 10^3/uL (130-400); Red Cell Dist. Width 19.9 % (11.5-14.5)
[2025-02-09 04:43] LABS: ALT (SGPT) 10 U/L (0-50); AST (SGOT) 34 U/L (17-59); Albumin 3.8 g/dl (3.5-5.0); Alkaline Phosphatase 63 U/L (38-126); Blood Urea Nitrogen 36 mg/dl (9-20); Calcium 9.4 mg/dl (8.4-10.2); Carbon Dioxide 28 mmol/L (22-30); Chloride 103 mmol/L (98-107); Estimated Creatinine Clearance 34 ml/min; Glucose 111 mg/dl (70-99); Potassium 3.5 mmol/L (3.5-5.1); Sodium 137 mmol/L (135-145); Total Protein 6.3 g/dl (6.3-8.2); eGFR 47.36
[2025-02-09] MEDS: LOW STRENGTH ASPIRIN 324 MG PO (06:51)
--- NOTE | 2025-02-09 08:00 | PTCARENOTE ---
Received pt from shift supervisor film processing staff, VSAnnie, A-yoel on the monitor, in today for a R/L heart cath. Pt given his aspirin 324mg.
[2025-02-09] MEDS: VITAMIN D3 (cholecalciferol) 25 MCG PO (08:21)
[2025-02-09] MEDS: VITAMIN B-12 1000 MCG PO (08:21)
[2025-02-09] MEDS: SINEMET 25-100 1 TABLET PO ×3 (08:21→17:13)
[2025-02-09] MEDS: TOPROL XL 100 MG PO ×2 (08:26→19:59)
--- NOTE | 2025-02-09 08:43 | W.PN.CD ---
Today's Communication / Plan
-
R/L cardiac catheterization today to clarify coronary anatomy.
Restart metoprolol succinate 100 mg BID.
Further rate control with digoxin (avoiding CCB).
Adjust diuretics based on filling pressures.
Start GDMT (ARNi/SGLT2i) post cath/contrast exposure to avoid JASIEL.
Impression / Plan
-
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 Berry),
who presented with confusion and AF with RVR (likely due to medication non-compliance from underlying confusion), subsequently found to have new HFrEF.
Primary demolitionist: Dr. Ross
#HFrEF
-Acute, threat to life.
-LVEF = 25%, elevated proBNP, orthopnea, and pulmonary congestion on CXR.
-R/L cardiac catheterization today to clarify coronary anatomy and filling pressures.
-GDMT as hemodynamics will tolerate:
-Diuretics: Furosemide 40 mg IV given yesterday. We will likely redose after cardiac catheterization.
-Beta ainsley: Restart metoprolol succinate 100 mg BID (home medication).
-ACEI/ARB/ARNi: Start sacubitril-valsartan 24/26 mg BID post cath. Case management consult.
-MRA: None at this time. We will consider starting after we have established beta ainsley/ARNi.
-SGLTi: Start dapagliflozin 10 mg daily post cath. Case management consult.
-ICD: Not currently indicated. This will need to be discussed after 90 days of GDMT with reassessment of LVEF as well as GOC (dementia/QoL).
#Permanent atrial fibrillation
-Chronic, s/p prior ablations.
-Rate control initially with diltiazem gtt. New HFrEF would favor beta blockers, possibly digoxin if further rate control needed.
-No role for rhythm control.
-Resume metoprolol succinate 100 mg twice daily as above.
-[id number]: Score at least 4 (CHF, HTN, age x2, possible vascular disease).
-Oral Anticoagulation: Eliquis, 5 mg twice daily, with his confusion unclear whether he had missed doses. Currently on hold in preparation for cardiac catheterization.
#Abnormal troponin
-Acute, likely nonischemic myocardial injury in the setting of atrial arrhythmia.
-EKG shows non-specific anterolateral/inferolateral ST/T wave abnormalities, but this appears similar to prior EKGs.
-Troponin 0.050 --> 0.050 --> 0.051.
#Confusion/Demetia
-Chronic.
-Continue donepezil.
-Management per primary service.
#Hypertension
-Chronic, stable.
-Monitor BP with reintroduction of beta ainsley and initiation of GDMT.
#Tachycardia/bradycardia syndrome
-Chronic, stable.
-Status post PPM 12/04/2022.
#Hypercholesterolemia
-Chronic, stable.
-Total cholesterol = 88, LDL = 41, HDL = 32, Triglycerides = 77.
-Continue atorvastatin 10 mg daily, fenofibrate 48 mg daily.
#Parkinson's disease
-Chronic, stable.
-Likely contributing to dementia.
-Previous reports of hallucinations (psychosis vs. Lewy body dementia?).
#Prostate cancer
-Chronic, completed XRT.
#MIKE
-Chronic, does not tolerate CPAP.
#History of tobacco abuse
-Continued cessation recommended
Subjective/Interval History:
Confused overnight.
16 beat run of NSVT. Normal labs.
Weight is down 1.4 kg.
HR ~ 90-110.
BP stable.
SaO2 94% on RA.
DATA:
Transthoracic echocardiogram, 02/08/2025:
SUMMARY
1. Normal LV size with severely reduced systolic function. Global diffuse hypokinesis.
2. LVEF is approximately 25% by visual estimation.
3. Dilated RV with reduced systolic function.
4. Mild to moderate mitral regurgitation.
5. Moderate tricuspid regurgitation. Mild to moderately elevated estimated PASP at 48 mmHg.
6. Compared to prior from November 21, 2022, LVEF is now severely reduced estimated at 25%, there is new mild to moderate mitral regurgitation, moderate tricuspid regurgitation is new, and estimated PASP is now mild to moderately elevated at 48mmHg
previously normal.
Physical Exam
Vital Signs/Labs
Vital Signs
Temp Pulse Resp BP Pulse Ox
36.6 C 109 20 138/84 93
02/09/25 08:01 02/09/25 08:26 02/09/25 03:38 02/09/25 08:26 02/09/25 03:38
02/07/25 02/08/25 02/09/25
11:59 11:59 11:59
Actual Weight 70.2 kg 68.8 kg
02/09/25 03:57
02/09/25 03:57
Magnesium 1.9 mg/dl (1.6-2.3) 02/08/25 19:34
Triglycerides 77 mg/dl (10-149) 02/08/25 04:34
LDL Cholesterol, Calc 41 mg/dl 02/08/25 04:34
VLDL Cholesterol, Calc 15 mg/dl (0-30) 02/08/25 04:34
HDL Cholesterol 32 mg/dl 02/08/25 04:34
02/07/25
15:51
Fwh-X-Rsyiayhyayb Pept [id number]
LAB Results
02/07/25 02/07/25 02/08/25
15:51 22:58 04:34
Troponin I 0.050 H* 0.050 H* 0.051 H*
Physical Exam
Constitutional: No acute distress and Comfortable
EENT: Anicteric and Moist mucous membranes
Cardiovascular: Pedal edema is absent, JVD pressure is normal, Rhythm/rate is irregular, S1S2 is normal and Murmur/rub/gallop absent
Respiratory: Respiratory effort normal, Lungs clear to auscul., Wheeze Absent, Crackles Absent and Rhonchi Absent
GI: Soft, Distention absent, Flat, Non tender and Normal bowel sounds
Neuro/Psych: Alert and Oriented
Data Reviewed
-
Date of Service: February 09, 2025
Medical Decision Making: Reviewed Test Results, Independent Historian Assessment and Test Interpretation
EKG: Tracing Personally Visualized and interpreted and Report Reviewed by me
Echo: Report Reviewed by me
X-Ray/CT/US/MRI/NUC/PET: Image Personally Visualized and interpreted and Report Reviewed by me
Labs: Labs Reviewed by me
Old Records: Reviewed
--- NOTE | 2025-02-09 10:38 | ITS.CL.CATH ---
Apartment Leasing Specialist - Catheterization
Cardiac Catheterization
Procedure Report:
CARDIAC CATHETERIZATION REPORT
Date of Procedure: 02/09/2025
Referring: Geronimo Chisholm M.D.
Indication: New cardiomyopathy.
PROCEDURE:
1. Right heart catheterization.
2. Coronary angiography.
3. Left heart catheterization.
A total of 39 minutes of procedural/moderate sedation was utilized. An independent director biomedical engineering was present to assist with and help manage the patient's level of consciousness and physiologic status.
ACCESS:
1. 6 Polish right radial artery using a modified Seldinger technique.
2. 5 Polish right antecubital vein using a previously placed IV.
CATHETERS:
1. 5 Polish balloon wedge.
2. 5 Polish JL 3.5.
3. 5 Polish JR4.
HEMODYNAMIC DATA
Weight (kg): 68.5
AO (s/d/x, mmHg): 144/93/106
LV (s/x, mmHg): 144/29
PCWP (a/v/x, mmHg): 35/42/31
PA (s/d/x, mmHg): 62/39/47
RV (s/x, mmHg): 62/20
RA (a/v/x, mmHg): 21/24/20
SVC SvO2 (%): 63.0
IVC SvO2 (%): Not obtained.
RA SvO2 (%): Not obtained.
RV SvO2 (%): Not obtained.
PA SvO2 (%): 49.4
SaO2 (%): 92.3
Hbg (g/dL): 13.5
MILO
CO (L/min): 3.70
CI (L/min/m2): 2.13
Thermodilution
CO (L/min): Not performed.
CI (L/min/m2): Not performed.
TPG (mmHg): 16
PVR (Valdez Units): 4.32
SVR (dynes*seconds*cm^-5): 1859
AVO2 Diff (Volume %): 7.88
Cardiac Power Output (galloway): 0.87 (MAP * CO)/451 (normal 0.5 - 0.7; 0.4 - 0.6 in the elderly)
Cardiac Power Index (galloway/m2): 0.50 (MAP * CI)/451
Yolanda: 1.15 (PAs-PAd)/RA
AV gradient (x, mmHg): None.
AV area (cm2): Normal.
MV gradient (x, mmHg): Not obtained.
MV area (cm2): Not obtained.
LEFT VENTRICULOGRAPHY: Not performed.
AORTOGRAPHY: Not performed.
CORONARY ANGIOGRAPHY
Dominance: Codominant.
Left Main: Large size, trifurcating vessel. There is no coronary artery disease.
LAD: Normal size vessel giving rise to 1 large diagonal before wrapping around the apex and supplying the distal inferior septum. The mid LAD is moderately tortuous. The distal LAD is severely tortuous. There is no coronary artery
disease.
Ramus: Medium to large size vessel with several notable distal branches. There is no coronary artery disease. The vessel is moderate to severely tortuous.
Circumflex: Large size, codominant vessel giving rise to 2 small obtuse marginals before terminating as a partial LPDA. There is no coronary artery disease.
RCA: Small to medium sized, codominant vessel with a partial RPDA. There is no coronary artery disease. There is at least moderate tortuosity.
INTERVENTIONS
None.
Closure Device: Vascular band for the right radial artery, manual pressure for the right antecubital vein.
Radiation dose (mGy): 391.24
DAP (cm2.Gy): 31.1189
Fluoroscopy time (minutes): 4.4
CONCLUSIONS:
1. Codominant circulation with no coronary artery disease but notable tortuosity in the LAD and ramus branches.
2. Severely elevated filling pressures (LVEDP = 29 mmHg, PCWP = 31 mmHg at 68.5 kg).
3. 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
4. Mixed, largely normal cardiac performance measurements (cardiac index = 2.12 L/min/m�, cardiac power output = 0.87 W, AVO2 difference = 7.88 volume %, Yolanda 1.15).
RECOMMENDATIONS:
1. Expectant management after cardiac catheterization via right radial/antecubital approach.
2. Limited weight bearing on the right wrist for one week.
3. Continue aggressive diuresis given severe elevation in filling pressures.
4. OMT/GDMT as hemodynamics will tolerate, starting with reintroduction of beta-blockers.
5. Aggressive rate control of atrial fibrillation.
6. Repeat echocardiogram after 90 days of GDMT.
Copy to: Geronimo Chisholm M.D., PAULA Conde, Nito Ross M.D.
Jamey Marinelli DO, FACC, FACP
--- NOTE | 2025-02-09 10:51 | W.PN.HOSP.TC ---
Today's Communication/Plan
-
Cardiac catheterization today
Bladder scan
Assessment / Plan
Assessment / Plan
Gen-awake, alert, confused, NAD
HEENT-NC, AT, anicteric, clear oral mm
Neck-supple
CV-reg, no M, +S1/S2
Lungs-clear B/L
Abd-soft, NT, ND
Ext-no edema
Musculoskeletal-no cyanosis, clubbing
Skin-warm and dry
Neuro-grossly non-focal
Psych-calm, cooperative
Acute heart failure reduced EF exacerbation - IV Lasix per cardiology. Cardiology following. Echocardiogram shows LVEF 25%, dilated RV with reduced systolic function, global diffuse hypokinesis. Mild to moderate MR. Moderate TR.
Appears to be a new diagnosis of heart failure.
BNP 13,800. Chest x-ray with mild pulmonary vascular congestion, trace bilateral pleural fluid.
Plan for right/left heart catheterization today as per cardiology.
AARON on CKD 3A -creatinine up from 1.2 to 1.5. Monitor closely on diuretics. We are holding enalapril.
Check bladder scan.
Troponin elevation -suspect due to acute nonischemic myocardial injury due to rapid heart rate.
Permanent atrial fibrillation -presentation with RVR. Rates now improved. Continue Eliquis, metoprolol. Off Cardizem drip now.
Has had multiple cardioversions in the past as well as ablation.
TSH 1.14.
Hyponatremia -present on admission. Resolved.
Tachybradycardia syndrome -s/p permanent pacemaker, 12/04/2022.
Parkinson's disease -stable. Continue Sinemet.
Dementia -suspect Lewy body dementia. Spoke with family and they mention that he does have increasing confusion over the past few weeks and months, hallucinations. Recommend outpatient follow-up with his neurologist, Dr. Sterling.
Hyperlipidemia -atorvastatin, Tricor.
Essential hypertension -stable.
History of prostate cancer -gets leuprolide injections every 3 months. Had radiation in the past.
Urinalysis shows hematuria with RBCs and positive blood. No evidence of pyuria or infection. Urine culture dated 02/07 no growth.
BPH
MIKE -intolerant of CPAP.
Diverticulosis
Former smoker
Full code
Anticipated Discharge: > 48 hours
Subjective/Interval History
-
Date of Service: February 09, 2025
Patient seen and examined. No complaints.
Objective Data
-
Labs:
Laboratory Results
02/09/25
03:57
WBC 5.8
Hgb 14.1
Hct 42.3
Plt Count 147
Sodium 137
Potassium 3.5
Chloride 103
Carbon Dioxide 28
BUN 36 H
Creatinine 1.5 H
Glucose 111 H
Calcium 9.4
Total Bilirubin 1.0
AST 34
ALT 10
Alkaline Phosphatase 63
Vital Signs:
Vital Signs
Temp Pulse Resp BP Pulse Ox
98 F 109 20 138/84 93
02/09/25 08:01 02/09/25 08:26 02/09/25 03:38 02/09/25 08:26 02/09/25 03:38
I&O
02/08/25 02/09/25 02/10/25
06:59 06:59 06:59
Intake Total 290 / 290
Output Total 200 / 200 975 / 975 100 / 100
Balance 90 / 90 -965 / -965 -100 / -100
Review of Systems
-
History Source: Patient
All other systems: Reviewed and negative
[2025-02-09] MEDS: LASIX 40 MG IV (11:51)
--- NOTE | 2025-02-09 12:10 | PTCARENOTE ---
Pt's radial site looked different, blood under the band from a hematoma, held pressure for 5 minutes and hematoma dissipated. Hematoma was about 2x2 in size. Will keep checking site as ordered.
--- NOTE | 2025-02-09 12:55 | PTCARENOTE ---
Received pt back from cath lab radiology technician, pt was a bit groggy, A-fib on the monitor, VSS, 2 L O2 added because of patient's grogginess. Right brachial site CDI, right radial band intact, no hematoma, radial pulse present and brachial pulse present. Pt was
satting 95%. IV lasix was ordered and given, pt placed on male purewick because of incontinence and accurate output.
--- NOTE | 2025-02-09 13:08 | CM ---
Addendum entered by Sonia Johnston 02/09/25 14:21:
Received message from Eva that sister is wanting to explore SNF/Rehab.for Mr. Berger . We reviewed SNF/Rehabs in the area. She would like referrals made to [facility], [facility], [facility], [facility] and
[facility]. Sent referral to check on bed availability.
Original Note:
Reviewed chart. Met with Mr. Olea to review discharge plans. Received consult regarding medication pricing. Telephone call to his insurance plan to check on coverage for Farxiga, Jardiance and Entesto. Currently all of the above
medications would be free since he has met his $2000.00 out of pocket. In the new year he would have to pay his deductible of $615.00 deductible,then his co-pay would be $47.00 a month for each medication until he mets his $2000.00 out of pocket
cost. Updated JET HANDLER regarding cost. Reviewed cost with Mr. Olea and sister regarding co-pays. They are agreeable to the co-pays. Also review living will/advance directives. Gave him the Living will information. Also gave them information of
private care givers. They have the private caregiver list. Reviewed [facility] Services with them. They are agreeable to [facility]. Prior to admission he resides with his sister in a two story home with two steps to enter. He has a full
flight of steps to get to bedroom/full bathroom. He has a powder room on the first floor. Prior to admission he ambulates with a single point cane or without any assisted device. He also has two walkers that he refuses to use. He does not have
any help in the home. He went to outpatient therapy for pelvic floor exercises and then to the [facility]. He was going only twice a week instead of the four day a week. He has a prescription plan and uses [facility]. The discharge
plan is to return home with his sister and [facility] when medically stable.
--- NOTE | 2025-02-09 16:43 | PTCARENOTE ---
Pt's right brachial and radial site are ecchymotic. Sites feel soft, no bleeding. Removed the tight dressing from the brachial site, put a tegaderm over the existing gauze and gauze was CDI. Will continue to check sites as ordered.
[2025-02-09] MEDS: LIPITOR 10 MG PO (18:12)
[2025-02-09] MEDS: DETROL LA 2 MG PO (18:12)
[2025-02-09] MEDS: TRICOR 48 MG PO (18:12)
--- NOTE | 2025-02-09 21:02 | PTCARENOTE ---
Rec'd pt at change of shift. Pt AAO*2 (forgetful of place but oriented to self and time), Afib/Vpaced on tele monitor, TAZLINA, and VSS. Pt denies any pain or discomfort and forgetful at times. Bed alarm active and call bhat within reach. PT took
off tele monitor on 2 occasions, staff educated pt on purpose of monitor after reapplying monitor. Pt now resting with call bhat in reach. See MAR and flowchart for full pt care and assessment.
[2025-02-09] MEDS: TYLENOL 650 MG PO (22:06)
[2025-02-09] MEDS: ARICEPT 5 MG PO (22:06)
[2025-02-10] VITALS (8 sets, daily range): BP systolic 102–147; BP diastolic 69–100; PULSE 88; O2SAT 98; BMI 25.8
[2025-02-10 05:46] LABS: Hematocrit 43.9 % (39.0-52.0); Hemoglobin 14.2 g/dL (13.0-18.0); Mean Corp Hgb Conc. 32.3 g/dL (33.0-37.0); Mean Corpuscular Volume 96.5 fL (80.0-94.0); Platelet Count 136 10^3/uL (130-400); Red Cell Dist. Width 19.9 % (11.5-14.5)
[2025-02-10 06:15] LABS: Blood Urea Nitrogen 39 mg/dl (9-20); Calcium 9.1 mg/dl (8.4-10.2); Carbon Dioxide 31 mmol/L (22-30); Chloride 101 mmol/L (98-107); Estimated Creatinine Clearance 39 ml/min; Glucose 93 mg/dl (70-99); Potassium 3.9 mmol/L (3.5-5.1); Sodium 139 mmol/L (135-145); eGFR 56.23
--- NOTE | 2025-02-10 07:32 | W.PN.CD ---
Today's Communication / Plan
-
Continue IV diuresis.
Monitor response to initiation of GDMT.
If additional rate control needed, consider digoxin or amiodarone.
Impression / Plan
-
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 Berry),
who presented with confusion and AF with RVR (likely due to medication non-compliance from underlying confusion), subsequently found to have new HFrEF.
Primary delinquent notice machine operator: Dr. Ross
#HFrEF
-Acute, threat to life.
-LVEF = 25%, elevated proBNP, orthopnea, and pulmonary congestion on CXR.
-R/L cardiac catheterization today to clarify coronary anatomy and filling pressures.
-GDMT as hemodynamics will tolerate:
-Diuretics: Furosemide 40 mg IV daily.
-Beta ainsley: Metoprolol succinate 100 mg BID (home medication).
-ACEI/ARB/ARNi: Start sacubitril-valsartan 24/26 mg BID this morning. Case management consult.
-MRA: None at this time. We will consider starting after we have established beta ainsley/ARNi.
-SGLTi: Start dapagliflozin 10 mg daily this morning. Case management consult.
-ICD: Not currently indicated. This will need to be discussed after 90 days of GDMT with reassessment of LVEF as well as GOC (dementia/QoL).
#Permanent atrial fibrillation
-Chronic, s/p prior ablations.
-Rate control initially with diltiazem gtt, transitioned to metoprolol succinate 100 mg BID (home medication). If more rate control needed, consider digoxin or amiodarone.
-No role for rhythm control.
-[id number]: Score at least 4 (CHF, HTN, age x2, possible vascular disease).
-Oral Anticoagulation: Resume apixaban 5 mg BID this morning.
#Abnormal troponin
-Acute, likely nonischemic myocardial injury in the setting of atrial arrhythmia.
-EKG shows non-specific anterolateral/inferolateral ST/T wave abnormalities, but this appears similar to prior EKGs.
-Troponin 0.050 --> 0.050 --> 0.051.
#Confusion/Demetia
-Chronic.
-Continue donepezil.
-Management per primary service.
#Hypertension
-Chronic, stable.
-Monitor BP with reintroduction of beta ainsley and initiation of GDMT.
#Tachycardia/bradycardia syndrome
-Chronic, stable.
-Status post PPM 12/04/2022.
#Hypercholesterolemia
-Chronic, stable.
-Total cholesterol = 88, LDL = 41, HDL = 32, Triglycerides = 77.
-Continue atorvastatin 10 mg daily, fenofibrate 48 mg daily.
#Parkinson's disease
-Chronic, stable.
-Likely contributing to dementia.
-Previous reports of hallucinations (psychosis vs. Lewy body dementia?).
#Prostate cancer
-Chronic, completed XRT.
#MIKE
-Chronic, does not tolerate CPAP.
#History of tobacco abuse
-Continued cessation recommended
Subjective/Interval History:
Weight down to 68 (from 68.8 <-- 70.2).
SaO2 = 99% on 2LNC.
HR controlled on metoprolol succinate 100 mg BID.
DATA:
Transthoracic echocardiogram, 02/08/2025:
SUMMARY
1. Normal LV size with severely reduced systolic function. Global diffuse hypokinesis.
2. LVEF is approximately 25% by visual estimation.
3. Dilated RV with reduced systolic function.
4. Mild to moderate mitral regurgitation.
5. Moderate tricuspid regurgitation. Mild to moderately elevated estimated PASP at 48 mmHg.
6. Compared to prior from November 21, 2022, LVEF is now severely reduced estimated at 25%, there is new mild to moderate mitral regurgitation, moderate tricuspid regurgitation is new, and estimated PASP is now mild to moderately elevated at 48mmHg
previously normal.
Cardiac Catheterization, 02/09/2025:
CONCLUSIONS:
1. Codominant circulation with no coronary artery disease but notable tortuosity in the LAD and ramus branches.
2. Severely elevated filling pressures (LVEDP = 29 mmHg, PCWP = 31 mmHg at 68.5 kg).
3. 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
4. Mixed, largely normal cardiac performance measurements (cardiac index = 2.12 L/min/m�, cardiac power output = 0.87 W, AVO2 difference = 7.88 volume %, Yolanda 1.15).
Physical Exam
Vital Signs/Labs
Vital Signs
Temp Pulse Resp BP Pulse Ox
36.2 C 77 20 147/94 99
02/10/25 07:30 02/10/25 07:30 02/10/25 07:30 02/10/25 05:28 02/10/25 07:30
02/08/25 02/09/25 02/10/25
11:59 11:59 11:59
Actual Weight 70.2 kg 68.8 kg 68 kg
02/10/25 05:30
02/10/25 05:30
Magnesium 1.9 mg/dl (1.6-2.3) 02/08/25 19:34
Triglycerides 77 mg/dl (10-149) 02/08/25 04:34
LDL Cholesterol, Calc 41 mg/dl 02/08/25 04:34
VLDL Cholesterol, Calc 15 mg/dl (0-30) 02/08/25 04:34
HDL Cholesterol 32 mg/dl 02/08/25 04:34
02/07/25
15:51
[id number] Pept [id number]
LAB Results
02/07/25 02/07/25 02/08/25
15:51 22:58 04:34
Troponin I 0.050 H* 0.050 H* 0.051 H*
Physical Exam
Constitutional: No acute distress and Comfortable
EENT: Anicteric and Moist mucous membranes
Cardiovascular: Rhythm/rate is irregular, Pedal edema present, S1S2 is normal and Murmur/rub/gallop absent
Respiratory: Respiratory effort normal, Lungs clear to auscul., Wheeze Absent, Crackles Absent and Rhonchi Absent
GI: Soft, Distention absent, Flat, Non tender and Normal bowel sounds
Neuro/Psych: Alert and Oriented
Other: Cath Site (Right radial/antecubital access sites are ecchymotic but non-tender.)
Data Reviewed
-
Date of Service: February 10, 2025
Medical Decision Making: Reviewed Test Results, Independent Historian Assessment and Test Interpretation
EKG: Tracing Personally Visualized and interpreted and Report Reviewed by me
Echo: Tracing Personally Visualized and interpreted and Report Reviewed by me
X-Ray/CT/US/MRI/NUC/PET: Image Personally Visualized and interpreted and Report Reviewed by me
Medical Tests (PFT, Pathology etc): Image Personally Visualized and interpreted, Report Reviewed by me, Discussed with Patient and Discussed with Family
Labs: Labs Reviewed by me
Old Records: Reviewed
[2025-02-10] MEDS: ELIQUIS 5 MG PO ×2 (08:45→19:30)
[2025-02-10] MEDS: VITAMIN B-12 1000 MCG PO (08:45)
[2025-02-10] MEDS: VITAMIN D3 (cholecalciferol) 25 MCG PO (08:46)
[2025-02-10] MEDS: ENTRESTO 24 MG/26 MG 1 TAB PO ×2 (08:47→19:30)
[2025-02-10] MEDS: TOPROL XL 100 MG PO (08:47)
[2025-02-10] MEDS: LASIX 40 MG IV (08:48)
[2025-02-10] MEDS: FARXIGA 10 MG PO (08:48)
[2025-02-10] MEDS: SINEMET 25-100 1 TABLET PO ×3 (08:50→17:25)
--- NOTE | 2025-02-10 09:45 | PTCARENOTE ---
Pt incontinent large amt of urine and voided 125 ml in urinal. Assisted OOB to chair for breakfast. He is weak on his feet but has been tolerating being OOB well. He walked with OT, his sons are visiting. OT reports Pt had BM with small amt visual
blood and blood noted on TP. Pt c/o leg cramps, Dr Navarrete aware, mag level added on to labs drawn this am. Mag result 1.9.
--- NOTE | 2025-02-10 12:17 | W.PN.HOSP.TC ---
Today's Communication/Plan
-
Continue diuretics
Assessment / Plan
Assessment / Plan
Gen-awake, alert, confused, NAD
HEENT-NC, AT, anicteric, clear oral mm
Neck-supple
CV-reg, no M, +S1/S2
Lungs-clear B/L
Abd-soft, NT, ND
Ext-no edema
Musculoskeletal-no cyanosis, clubbing
Skin-warm and dry
Neuro-grossly non-focal
Psych-calm, cooperative
Acute heart failure reduced EF exacerbation - IV Lasix per cardiology. Cardiology following. Echocardiogram shows LVEF 25%, dilated RV with reduced systolic function, global diffuse hypokinesis. Mild to moderate MR. Moderate TR.
Appears to be a new diagnosis of heart failure.
BNP 13,800. Chest x-ray with mild pulmonary vascular congestion, trace bilateral pleural fluid.
Left and right heart catheterization done 02/09 showed codominant circulation with no CAD but notable tortuosity in the LAD and ramus branches. Severely elevated filling pressures.
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 PCWP 31.
AARON on CKD 3A -creatinine up from 1.2 to 1.5, improved today to 1.3. Monitor closely on diuretics. We are holding enalapril.
Check bladder scan.
Troponin elevation -suspect due to acute nonischemic myocardial injury due to rapid heart rate.
Permanent atrial fibrillation -presentation with RVR. Rates now improved. Continue Eliquis, metoprolol. Off Cardizem drip now.
Has had multiple cardioversions in the past as well as ablation.
TSH 1.14.
Hyponatremia -present on admission. Resolved.
Tachybradycardia syndrome -s/p permanent pacemaker, 12/04/2022.
Parkinson's disease -stable. Continue Sinemet.
Dementia -suspect Lewy body dementia. Spoke with family and they mention that he does have increasing confusion over the past few weeks and months, hallucinations. Recommend outpatient follow-up with his neurologist, Dr. Sterling.
Hyperlipidemia -atorvastatin, Tricor.
Essential hypertension -stable.
History of prostate cancer -gets leuprolide injections every 3 months. Had radiation in the past.
Urinalysis shows hematuria with RBCs and positive blood. No evidence of pyuria or infection. Urine culture dated 02/07 no growth.
BPH
MIKE -intolerant of CPAP.
Diverticulosis
Former smoker
Full code
Anticipated Discharge: 24 - 48 hours
Subjective/Interval History
-
Date of Service: February 10, 2025
Patient seen and examined, no complaints.
Objective Data
-
Labs:
Laboratory Results
02/10/25
05:30
WBC 5.4
Hgb 14.2
Hct 43.9
Plt Count 136
Sodium 139
Potassium 3.9
Chloride 101
Carbon Dioxide 31 H
BUN 39 H
Creatinine 1.3
Glucose 93
Calcium 9.1
Vital Signs:
Vital Signs
Temp Pulse Resp BP Pulse Ox
97.2 F 82 20 134/100 99
02/10/25 07:30 02/10/25 08:00 02/10/25 07:30 02/10/25 07:29 02/10/25 07:30
I&O
02/09/25 02/10/25 02/11/25
06:59 06:59 06:59
Intake Total 740 / 740
Output Total 975 / 975 1275 / 1275
Balance -965 / -965 -535 / -535
Review of Systems
-
History Source: Patient
All other systems: Reviewed and negative
[2025-02-10 13:36] LABS: Magnesium 1.9 mg/dl (1.6-2.3)
[2025-02-10] MEDS: TRICOR 48 MG PO (17:25)
[2025-02-10] MEDS: DETROL LA 2 MG PO (17:25)
[2025-02-10] MEDS: LIPITOR 10 MG PO (17:26)
[2025-02-10] MEDS: TOPROL XL PO (19:32)
--- NOTE | 2025-02-10 21:07 | PTCARENOTE ---
Assumed care on pt at 1900, aaox3 with some forgetfulness at times. Afib/Vpaced on tele, HR 90-100's, bp soft with sbp on the 100's, Metoprolol held as per parameters. Call bhat within reach, POC ongoing.
[2025-02-10] MEDS: ARICEPT 5 MG PO (21:13)
[2025-02-11] VITALS (7 sets, daily range): BP systolic 104–142; BP diastolic 68–98; BMI 24.8
[2025-02-11 03:25] LABS: Blood Urea Nitrogen 48 mg/dl (9-20); Calcium 9.2 mg/dl (8.4-10.2); Carbon Dioxide 33 mmol/L (22-30); Chloride 100 mmol/L (98-107); Estimated Creatinine Clearance 30 ml/min; Glucose 120 mg/dl (70-99); Potassium 3.6 mmol/L (3.5-5.1); Sodium 139 mmol/L (135-145); eGFR 40.75
[2025-02-11] MEDS: ELIQUIS 5 MG PO ×2 (08:14→21:10)
[2025-02-11] MEDS: VITAMIN D3 (cholecalciferol) 25 MCG PO (08:15)
[2025-02-11] MEDS: ENTRESTO 24 MG/26 MG 1 TAB PO ×2 (08:15→21:11)
[2025-02-11] MEDS: TOPROL XL 100 MG PO ×2 (08:15→21:11)
[2025-02-11] MEDS: VITAMIN B-12 1000 MCG PO (08:15)
[2025-02-11] MEDS: FARXIGA 10 MG PO (08:15)
[2025-02-11] MEDS: SINEMET 25-100 1 TABLET PO ×3 (08:17→16:58)
--- NOTE | 2025-02-11 09:10 | PTCARENOTE ---
Patient received at change of shift resting in the bed. Alert to self and place. The patient was correct with stating the year but believed it was February. Confused and forgetful at times. Bed and chair alarm in place. The patient denies pain at
this time. Offers no complaints. Afib with PVCs on telemetry. Oxygen saturation 94-95% on RA. Right radial and brachial sites with gauze and tegaderm C/D/I, ecchymosis noted but soft to palpation, radial pulse palpable. Patient ambulated to chair
for breakfast, x1 assist with RW. Plan of care discussed. Call bhat within reach. Care ongoing.
[2025-02-11] MEDS: LASIX IV (10:07)
--- NOTE | 2025-02-11 10:49 | W.PN.CD ---
Today's Communication / Plan
-
Continue IV diuresis
Aim for discharge Friday/Friday
Impression / Plan
-
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 Berry),
who presented with confusion and AF with RVR (likely due to medication non-compliance from underlying confusion), subsequently found to have new HFrEF.
Primary shoe singer: Dr. Ross
#HFrEF
-Acute. Severe exacerbation requiring IV diuresis and close monitoring of labs/telemetry.
-LVEF = 25%, elevated proBNP, orthopnea, and pulmonary congestion on CXR.
-R/L cardiac catheterization on 02/09 with LVEDP 29 mmHg and no CAD
-GDMT as hemodynamics will tolerate:
-Diuretics: Furosemide 40 mg IV daily.
-Beta ainsley: Metoprolol succinate 100 mg BID (home medication).
-ACEI/ARB/ARNi: Continue sacubitril-valsartan 24/26 mg BID. Cost acceptable per CM note.
-MRA: None at this time. We will consider starting after we have established beta ainsley/ARNi.
-SGLTi: Continue dapagliflozin 10 mg daily. Cost acceptable per CM note.
-ICD: Not currently indicated. This will need to be discussed after 90 days of GDMT with reassessment of LVEF as well as GOC (dementia/QoL).
#Permanent atrial fibrillation
-Chronic, s/p prior ablations.
-Rate control initially with diltiazem gtt, transitioned to metoprolol succinate 100 mg BID (home medication). If more rate control needed, consider digoxin or amiodarone.
-No role for rhythm control.
-[id number]: Score at least 4 (CHF, HTN, age x2, possible vascular disease).
-Oral Anticoagulation: Resume apixaban 5 mg BID this morning.
#Abnormal troponin
-Acute, likely nonischemic myocardial injury in the setting of atrial arrhythmia.
-EKG shows non-specific anterolateral/inferolateral ST/T wave abnormalities, but this appears similar to prior EKGs.
-Troponin 0.050 --> 0.050 --> 0.051.
#Confusion/Demetia
-Chronic.
-Continue donepezil.
-Management per primary service.
#Hypertension
-Chronic, stable.
-Monitor BP with reintroduction of beta ainsley and initiation of GDMT.
#Tachycardia/bradycardia syndrome
-Chronic, stable.
-Status post PPM 12/04/2022.
#Hypercholesterolemia
-Chronic, stable.
-Total cholesterol = 88, LDL = 41, HDL = 32, Triglycerides = 77.
-Continue atorvastatin 10 mg daily, fenofibrate 48 mg daily.
#Parkinson's disease
-Chronic, stable.
-Likely contributing to dementia.
-Previous reports of hallucinations (psychosis vs. Lewy body dementia?).
#Prostate cancer
-Chronic, completed XRT.
#MIKE
-Chronic, does not tolerate CPAP.
#History of tobacco abuse
-Continued cessation recommended
Subjective/Interval History:
Shaky/unstable when getting up to use the bathroom but no lightheadedness/dizziness. He denies shortness of breath and orthopnea.
DATA:
Transthoracic echocardiogram, 02/08/2025:
SUMMARY
1. Normal LV size with severely reduced systolic function. Global diffuse hypokinesis.
2. LVEF is approximately 25% by visual estimation.
3. Dilated RV with reduced systolic function.
4. Mild to moderate mitral regurgitation.
5. Moderate tricuspid regurgitation. Mild to moderately elevated estimated PASP at 48 mmHg.
6. Compared to prior from November 21, 2022, LVEF is now severely reduced estimated at 25%, there is new mild to moderate mitral regurgitation, moderate tricuspid regurgitation is new, and estimated PASP is now mild to moderately elevated at 48mmHg
previously normal.
Cardiac Catheterization, 02/09/2025:
CONCLUSIONS:
1. Codominant circulation with no coronary artery disease but notable tortuosity in the LAD and ramus branches.
2. Severely elevated filling pressures (LVEDP = 29 mmHg, PCWP = 31 mmHg at 68.5 kg).
3. 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
4. Mixed, largely normal cardiac performance measurements (cardiac index = 2.12 L/min/m�, cardiac power output = 0.87 W, AVO2 difference = 7.88 volume %, Yolanda 1.15).
Physical Exam
Vital Signs/Labs
Vital Signs
Temp Pulse Resp BP Pulse Ox
97.6 F 101 20 142/98 95
02/11/25 08:03 02/11/25 09:00 02/11/25 08:03 02/11/25 08:15 02/11/25 08:03
02/10/25 02/11/25 02/12/25
06:59 06:59 06:59
Actual Weight 149 lb 14.629 oz 144 lb 6.444 oz
02/10/25 05:30
02/11/25 02:34
Magnesium 1.9 mg/dl (1.6-2.3) 02/10/25 05:30
Triglycerides 77 mg/dl (10-149) 02/08/25 04:34
LDL Cholesterol, Calc 41 mg/dl 02/08/25 04:34
VLDL Cholesterol, Calc 15 mg/dl (0-30) 02/08/25 04:34
HDL Cholesterol 32 mg/dl 02/08/25 04:34
02/07/25
15:51
[id number] Pept [id number]
Physical Exam
Constitutional: No acute distress and Comfortable
Cardiovascular: Rhythm/rate is irregular, Pedal edema present (1+), S1S2 is normal and Murmur/rub/gallop absent
Respiratory: Respiratory effort normal and Other (Decreased breath sounds at right base)
Neuro/Psych: AO x 3
Data Reviewed
-
Date of Service: February 11, 2025
Medical Decision Making: Reviewed Test Results, Test Interpretation and Review of Case with other Provider
EKG: Tracing Personally Visualized and interpreted
Echo: Report Reviewed by me
Labs: Labs Reviewed by me
[2025-02-11] MEDS: LASIX 40 MG IV (11:21)
--- NOTE | 2025-02-11 11:25 | PTCARENOTE ---
Creatinine elevated on AM labs. Okay to give IV furosemide per Dr. Pires. IV lasix given, see MAY.
--- NOTE | 2025-02-11 12:28 | W.PN.HOSP.TC ---
Today's Communication/Plan
-
Continue diuretics
Recheck labs in the morning
PT/OT
Assessment / Plan
Assessment / Plan
Gen-awake, alert, confused, NAD
HEENT-NC, AT, anicteric, clear oral mm
Neck-supple
CV-reg, no M, +S1/S2
Lungs-clear B/L
Abd-soft, NT, ND
Ext-no edema
Musculoskeletal-no cyanosis, clubbing
Skin-warm and dry
Neuro-grossly non-focal
Psych-calm, cooperative
Acute heart failure reduced EF exacerbation - IV Lasix per cardiology. Cardiology following. Echocardiogram shows LVEF 25%, dilated RV with reduced systolic function, global diffuse hypokinesis. Mild to moderate MR. Moderate TR.
Appears to be a new diagnosis of heart failure.
BNP 13,800. Chest x-ray with mild pulmonary vascular congestion, trace bilateral pleural fluid.
Left and right heart catheterization done 02/09 showed codominant circulation with no CAD but notable tortuosity in the LAD and ramus branches. Severely elevated filling pressures.
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 PCWP 31.
Clinically improving with weight coming down.
AARON on CKD 3A -creatinine up to 1.7 today. Rising creatinine could be due to sacubitril/valsartan. Enalapril discontinued on admission.
Monitor closely on diuretics.
Post void residual bladder scan 76cc this morning.
Troponin elevation -suspect due to acute nonischemic myocardial injury due to rapid heart rate.
Permanent atrial fibrillation -presentation with RVR. Rates now improved. Continue Eliquis, metoprolol. Off Cardizem drip now.
Has had multiple cardioversions in the past as well as ablation.
TSH 1.14.
Hyponatremia -present on admission. Resolved.
Tachybradycardia syndrome -s/p permanent pacemaker, 12/04/2022.
Parkinson's disease -stable. Continue Sinemet.
Dementia -suspect Lewy body dementia. Spoke with family and they mention that he does have increasing confusion over the past few weeks and months, hallucinations. Recommend outpatient follow-up with his neurologist, Dr. Sterling.
Hyperlipidemia -atorvastatin, Tricor.
Essential hypertension -stable.
History of prostate cancer -gets leuprolide injections every 3 months. Had radiation in the past.
Urinalysis shows hematuria with RBCs and positive blood. No evidence of pyuria or infection. Urine culture dated 02/07 no growth.
BPH
MIKE -intolerant of CPAP.
Diverticulosis
Former smoker
Full code
Dispo -PT is recommending SNF on discharge. Sister agreeable to SNF.
Updated patient's sister Jovita on the phone. All questions answered.
Anticipated Discharge: > 48 hours
Subjective/Interval History
-
Date of Service: February 11, 2025
Patient seen and examined, no complaints.
Objective Data
-
Labs:
Laboratory Results
02/11/25
02:34
Sodium 139
Potassium 3.6
Chloride 100
Carbon Dioxide 33 H
BUN 48 H
Creatinine 1.7 H
Glucose 120 H
Calcium 9.2
Vital Signs:
Vital Signs
Temp Pulse Resp BP Pulse Ox
98.6 F 82 16 117/80 97
02/11/25 11:10 02/11/25 11:21 02/11/25 11:10 02/11/25 11:21 02/11/25 11:10
I&O
02/10/25 02/11/25 02/12/25
06:59 06:59 06:59
Intake Total 740 / 740 720 / 720
Output Total 1275 / 1275 500 / 500 275 / 275
Balance -535 / -535 220 / 220 -275 / -275
Review of Systems
-
History Source: Patient
All other systems: Reviewed and negative
--- NOTE | 2025-02-11 14:26 | PTCARENOTE ---
Patient with increased HR this afternoon, notified Dr. Pires who added PO amiodarone to start. Care ongoing.
--- NOTE | 2025-02-11 15:10 | CM ---
Reviewed chart. Received message from [facility] Admission, they do not have an available bed. Telephone call to [facility], they are off today, they will review on Friday. Telephone call to [facility] Ad[facility] to check
on status. Nursing is still reviewing his referral. Telephone call to [facility] admission, left message. Telephone call to [facility] admissions. Left message. Awaiting to see if any SNF will have an available bed. Medical work-up in progress.
The discharge plan is to go to SNF/Rehab. when medically stable and bed available.
[2025-02-11] MEDS: TRICOR 48 MG PO (17:00)
[2025-02-11] MEDS: LIPITOR 10 MG PO (17:00)
[2025-02-11] MEDS: DETROL LA 2 MG PO (17:00)
[2025-02-11] MEDS: PACERONE 400 MG PO (21:11)
[2025-02-11] MEDS: ARICEPT 5 MG PO (21:23)
[2025-02-12] VITALS (13 sets, daily range): BP systolic 98–128; BP diastolic 69–92; PULSE 76–84; O2SAT 95; BMI 25.8
[2025-02-12 03:04] LABS: Blood Urea Nitrogen 44 mg/dl (9-20); Calcium 9.0 mg/dl (8.4-10.2); Carbon Dioxide 33 mmol/L (22-30); Chloride 100 mmol/L (98-107); Estimated Creatinine Clearance 34 ml/min; Glucose 119 mg/dl (70-99); Potassium 3.8 mmol/L (3.5-5.1); Sodium 138 mmol/L (135-145); eGFR 47.36
--- NOTE | 2025-02-12 03:23 | PTCARENOTE ---
HR following first dose PO amiodarone last night mostly 80's, A-fib with V pacing. Pt. disoriented to time but pleasant. Uses urinal and is incontinent at times. Bed alarm on .
--- NOTE | 2025-02-12 07:47 | W.PN.HOSP.TC ---
Today's Communication/Plan
-
Continue current care
Assessment / Plan
Assessment / Plan
Gen-awake, alert, confused, NAD
HEENT-NC, AT, anicteric, clear oral mm
Neck-supple
CV-reg, no M, +S1/S2
Lungs-clear B/L
Abd-soft, NT, ND
Ext-no edema
Musculoskeletal-no cyanosis, clubbing
Skin-warm and dry
Neuro-grossly non-focal
Psych-calm, cooperative
Acute heart failure reduced EF exacerbation - IV Lasix per cardiology. Cardiology following. Echocardiogram shows LVEF 25%, dilated RV with reduced systolic function, global diffuse hypokinesis. Mild to moderate MR. Moderate TR.
Appears to be a new diagnosis of heart failure.
BNP 13,800. Chest x-ray with mild pulmonary vascular congestion, trace bilateral pleural fluid.
Left and right heart catheterization done 02/09 showed codominant circulation with no CAD but notable tortuosity in the LAD and ramus branches. Severely elevated filling pressures.
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 PCWP 31.
Clinically improving with weight coming down.
AARON on CKD 3A -creatinine improved to 1.5 today. Elevated creatinine could be due to sacubitril/valsartan. Enalapril discontinued on admission.
Monitor closely on diuretics.
Post void residual bladder scan 76cc yesterday morning.
Troponin elevation -suspect due to acute nonischemic myocardial injury due to rapid heart rate.
Permanent atrial fibrillation -presentation with RVR. Rates now improved. Continue Eliquis, metoprolol. Off Cardizem drip now.
Has had multiple cardioversions in the past as well as ablation.
TSH 1.14.
Hyponatremia -present on admission. Resolved.
Tachybradycardia syndrome -s/p permanent pacemaker, 12/04/2022.
Parkinson's disease -stable. Continue Sinemet.
Dementia -suspect Lewy body dementia. Spoke with family and they mention that he does have increasing confusion over the past few weeks and months, hallucinations. Recommend outpatient follow-up with his neurologist, Dr. Sterling.
Hyperlipidemia -atorvastatin, Tricor.
Essential hypertension -stable.
History of prostate cancer -gets leuprolide injections every 3 months. Had radiation in the past.
Urinalysis shows hematuria with RBCs and positive blood. No evidence of pyuria or infection. Urine culture dated 02/07 no growth.
BPH
MIKE -intolerant of CPAP.
Diverticulosis
Former smoker
Full code
Dispo -PT is recommending SNF on discharge. Sister agreeable to SNF.
Anticipated Discharge: 24 - 48 hours
Subjective/Interval History
-
Date of Service: February 12, 2025
Patient seen and examined, no complaints.
Objective Data
-
Labs:
Laboratory Results
02/12/25
02:40
Sodium 138
Potassium 3.8
Chloride 100
Carbon Dioxide 33 H
BUN 44 H
Creatinine 1.5 H
Glucose 119 H
Calcium 9.0
Vital Signs:
Vital Signs
Temp Pulse Resp BP Pulse Ox
98.2 F 76 16 112/87 96
02/12/25 07:25 02/12/25 07:25 02/12/25 07:25 02/12/25 07:20 02/12/25 07:32
I&O
02/11/25 02/12/25 02/13/25
06:59 06:59 06:59
Intake Total 720 / 720 960 / 960
Output Total 500 / 500 875 / 875
Balance 220 / 220 85 / 85
Review of Systems
-
History Source: Patient
All other systems: Reviewed and negative
--- NOTE | 2025-02-12 08:17 | W.PN.CD ---
Today's Communication / Plan
-
IV Diuresis standing weights
Impression / Plan
-
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 Berry),
who presented with confusion and AF with RVR (likely due to medication non-compliance from underlying confusion), subsequently found to have new HFrEF.
Primary agency sales development associate: Dr. Ross
#HFrEF
-Acute. Severe exacerbation requiring IV diuresis and close monitoring of labs/telemetry.
- IV lasix 40 mg BID
-LVEF = 25%, elevated proBNP, orthopnea, and pulmonary congestion on CXR.
-R/L cardiac catheterization on 02/09 with LVEDP 29 mmHg and no CAD
-GDMT as hemodynamics will tolerate:
-Diuretics: Furosemide 40 mg IV daily.
-Beta ainsley: Metoprolol succinate 100 mg BID (home medication).
-ACEI/ARB/ARNi: Continue sacubitril-valsartan 24/26 mg BID. Cost acceptable per CM note.
-MRA: None at this time. We will consider starting after we have established beta ainsley/ARNi.
-SGLTi: Continue dapagliflozin 10 mg daily. Cost acceptable per CM note.
-ICD: Not currently indicated. This will need to be discussed after 90 days of GDMT with reassessment of LVEF as well as GOC (dementia/QoL).
#Permanent atrial fibrillation
-Chronic, s/p prior ablations.
-Rate control initially with diltiazem gtt, transitioned to metoprolol succinate 100 mg BID (home medication). If more rate control needed, consider digoxin or amiodarone.
-No role for rhythm control.
-[id number]: Score at least 4 (CHF, HTN, age x2, possible vascular disease).
-Oral Anticoagulation: Resume apixaban 5 mg BID this morning.
#Abnormal troponin
-Acute, likely nonischemic myocardial injury in the setting of atrial arrhythmia.
-EKG shows non-specific anterolateral/inferolateral ST/T wave abnormalities, but this appears similar to prior EKGs.
-Troponin 0.050 --> 0.050 --> 0.051.
#Confusion/Demetia
-Chronic.
-Continue donepezil.
-Management per primary service.
#Hypertension
-Chronic, stable.
-Monitor BP with reintroduction of beta ainsley and initiation of GDMT.
#Tachycardia/bradycardia syndrome
-Chronic, stable.
-Status post PPM 12/04/2022.
#Hypercholesterolemia
-Chronic, stable.
-Total cholesterol = 88, LDL = 41, HDL = 32, Triglycerides = 77.
-Continue atorvastatin 10 mg daily, fenofibrate 48 mg daily.
#Parkinson's disease
-Chronic, stable.
-Likely contributing to dementia.
-Previous reports of hallucinations (psychosis vs. Lewy body dementia?).
#Prostate cancer
-Chronic, completed XRT.
#MIKE
-Chronic, does not tolerate CPAP.
#History of tobacco abuse
-Continued cessation recommended
Subjective/Interval History:
Shaky/unstable when getting up to use the bathroom but no lightheadedness/dizziness. He denies shortness of breath and orthopnea.
DATA:
Transthoracic echocardiogram, 02/08/2025:
SUMMARY
1. Normal LV size with severely reduced systolic function. Global diffuse hypokinesis.
2. LVEF is approximately 25% by visual estimation.
3. Dilated RV with reduced systolic function.
4. Mild to moderate mitral regurgitation.
5. Moderate tricuspid regurgitation. Mild to moderately elevated estimated PASP at 48 mmHg.
6. Compared to prior from November 21, 2022, LVEF is now severely reduced estimated at 25%, there is new mild to moderate mitral regurgitation, moderate tricuspid regurgitation is new, and estimated PASP is now mild to moderately elevated at 48mmHg
previously normal.
Cardiac Catheterization, 02/09/2025:
CONCLUSIONS:
1. Codominant circulation with no coronary artery disease but notable tortuosity in the LAD and ramus branches.
2. Severely elevated filling pressures (LVEDP = 29 mmHg, PCWP = 31 mmHg at 68.5 kg).
3. 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
4. Mixed, largely normal cardiac performance measurements (cardiac index = 2.12 L/min/m�, cardiac power output = 0.87 W, AVO2 difference = 7.88 volume %, Yolanda 1.15).
Physical Exam
Vital Signs/Labs
Vital Signs
Temp Pulse Resp BP Pulse Ox
98.2 F 76 16 112/87 96
02/12/25 07:25 02/12/25 07:25 02/12/25 07:25 02/12/25 07:20 02/12/25 07:32
02/11/25 02/12/25 02/13/25
06:59 06:59 06:59
Actual Weight 144 lb 6.444 oz 149 lb 14.629 oz
02/10/25 05:30
02/12/25 02:40
Magnesium 1.9 mg/dl (1.6-2.3) 02/10/25 05:30
Triglycerides 77 mg/dl (10-149) 02/08/25 04:34
LDL Cholesterol, Calc 41 mg/dl 02/08/25 04:34
VLDL Cholesterol, Calc 15 mg/dl (0-30) 02/08/25 04:34
HDL Cholesterol 32 mg/dl 02/08/25 04:34
02/07/25
15:51
[id number] Pept [id number]
Physical Exam
Constitutional: No acute distress and Comfortable
EENT: Anicteric
Cardiovascular: Pedal edema is absent and Rhythm/rate is irregular
Respiratory: Respiratory effort normal and Lungs clear to auscul.
GI: Soft
Neuro/Psych: Alert and Oriented
Data Reviewed
-
Date of Service: February 12, 2025
Medical Decision Making: Reviewed Test Results
EKG: Tracing Personally Visualized and interpreted (af)
Echo: Tracing Personally Visualized and interpreted
Labs: Labs Reviewed by me
[2025-02-12] MEDS: PACERONE 400 MG PO ×2 (08:57→19:57)
[2025-02-12] MEDS: VITAMIN B-12 1000 MCG PO (08:57)
[2025-02-12] MEDS: VITAMIN D3 (cholecalciferol) 25 MCG PO (08:57)
[2025-02-12] MEDS: LASIX 40 MG IV ×2 (08:57→17:13)
[2025-02-12] MEDS: FARXIGA 10 MG PO (08:57)
[2025-02-12] MEDS: TOPROL XL 100 MG PO ×2 (08:57→19:56)
[2025-02-12] MEDS: ENTRESTO 24 MG/26 MG 1 TAB PO ×2 (08:57→19:57)
[2025-02-12] MEDS: ELIQUIS 5 MG PO ×2 (08:57→19:58)
[2025-02-12] MEDS: SINEMET 25-100 1 TABLET PO ×3 (09:55→17:13)
--- NOTE | 2025-02-12 15:01 | PTCARENOTE ---
Assumed care of the pt @0700 Pt is AAOx2 confused at times. A Fib with v-paced beats on the monitor VSS denies cp. Pt is 1 person assist with walker to chair. OOB to chair for about 6 hours. Pt is cont/inc of bowel and bladder. Call bhat within
reach.
[2025-02-12] MEDS: DETROL LA 2 MG PO (17:12)
[2025-02-12] MEDS: LIPITOR 10 MG PO (17:13)
[2025-02-12] MEDS: TRICOR 48 MG PO (17:15)
[2025-02-12] MEDS: TYLENOL 650 MG PO (19:57)
[2025-02-12] MEDS: ARICEPT 5 MG PO (22:22)
[2025-02-12 22:47] LABS: Blood Urea Nitrogen 43 mg/dl (9-20); Calcium 8.8 mg/dl (8.4-10.2); Carbon Dioxide 33 mmol/L (22-30); Chloride 101 mmol/L (98-107); Estimated Creatinine Clearance 39 ml/min; Glucose 126 mg/dl (70-99); Magnesium 1.8 mg/dl (1.6-2.3); Potassium 3.9 mmol/L (3.5-5.1); Sodium 135 mmol/L (135-145); eGFR 56.23
[2025-02-12] MEDS: KCL 20 MEQ PO (23:26)
--- NOTE | 2025-02-13 00:52 | PTCARENOTE ---
Rec'd pt at change of shift. Pt AAO*3 (forgetful at times/ hx dementia), VSS, and Afib/v paced on tele monitor. Pt denies any pain but reported mild discomfort in knees and PRN tylenol given as ordered. Pt currently resting with call bhat in
reach. See MAR and flowchart for full pt care and assessment.
Pt with 8 beat run of vt at 19:45. Pt denies any sensation of pain or fluttering in chest. BP stable at 109/75 and returned to vpaced/afib. 20:00 medications given as ordered. PAULA gardner notified. Rec'd order for bmp and mag add on, labs
collected as ordered. Rec'd order for 20 meq of K replacement and given as ordered.
[2025-02-13 02:59] VITALS: BP 117/84
[2025-02-13 03:00] VITALS: BMI 24.4
[2025-02-13 04:14] LABS: Blood Urea Nitrogen 41 mg/dl (9-20); Calcium 8.8 mg/dl (8.4-10.2); Carbon Dioxide 31 mmol/L (22-30); Chloride 102 mmol/L (98-107); Estimated Creatinine Clearance 39 ml/min; Glucose 100 mg/dl (70-99); Magnesium 1.8 mg/dl (1.6-2.3); Potassium 3.9 mmol/L (3.5-5.1); Sodium 136 mmol/L (135-145); eGFR 56.23
[2025-02-13 07:09] VITALS: BP 123/74
--- NOTE | 2025-02-13 07:38 | W.PN.HOSP.TC ---
Today's Communication/Plan
-
Continue current care
Assessment / Plan
Assessment / Plan
Gen-awake, alert, confused, NAD
HEENT-NC, AT, anicteric, clear oral mm
Neck-supple
CV-reg, no M, +S1/S2
Lungs-clear B/L
Abd-soft, NT, ND
Ext-no edema
Musculoskeletal-no cyanosis, clubbing
Skin-warm and dry
Neuro-grossly non-focal
Psych-calm, cooperative
Acute heart failure reduced EF exacerbation - IV Lasix per cardiology. Cardiology following. Echocardiogram shows LVEF 25%, dilated RV with reduced systolic function, global diffuse hypokinesis. Mild to moderate MR. Moderate TR.
Appears to be a new diagnosis of heart failure.
BNP 13,800. Chest x-ray with mild pulmonary vascular congestion, trace bilateral pleural fluid.
Left and right heart catheterization done 02/09 showed codominant circulation with no CAD but notable tortuosity in the LAD and ramus branches. Severely elevated filling pressures.
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 PCWP 31.
Clinically improving with weight coming down.
AARON on CKD 3A -creatinine improved to 1.3 today. Elevated creatinine could be due to sacubitril/valsartan. Enalapril discontinued on admission.
Monitor closely on diuretics.
Post void residual bladder scan 76cc.
Troponin elevation -suspect due to acute nonischemic myocardial injury due to rapid heart rate.
Permanent atrial fibrillation -presentation with RVR. Rates now improved. Continue Eliquis, metoprolol. Off Cardizem drip now.
Has had multiple cardioversions in the past as well as ablation.
TSH 1.14.
Hyponatremia -present on admission. Resolved.
Tachybradycardia syndrome -s/p permanent pacemaker, 12/04/2022.
Parkinson's disease -stable. Continue Sinemet.
Dementia -suspect Lewy body dementia. Spoke with family and they mention that he does have increasing confusion over the past few weeks and months, hallucinations. Recommend outpatient follow-up with his neurologist, Dr. Sterling.
Hyperlipidemia -atorvastatin, Tricor.
Essential hypertension -stable.
History of prostate cancer -gets leuprolide injections every 3 months. Had radiation in the past.
Urinalysis shows hematuria with RBCs and positive blood. No evidence of pyuria or infection. Urine culture dated 02/07 no growth.
BPH
MIKE -intolerant of CPAP.
Diverticulosis
Former smoker
Full code
Dispo -PT is recommending SNF on discharge. Sister agreeable to SNF.
Anticipated Discharge: 24 - 48 hours
Subjective/Interval History
-
Date of Service: February 13, 2025
Patient seen and examined. No complaints.
Objective Data
-
Labs:
Laboratory Results
02/12/25 02/12/25 02/13/25
21:45 22:18 03:06
Sodium Cancelled 135 136
Potassium Cancelled 3.9 3.9
Chloride Cancelled 101 102
Carbon Dioxide Cancelled 33 H 31 H
BUN Cancelled 43 H 41 H
Creatinine Cancelled 1.3 1.3
Glucose Cancelled 126 H 100 H
Calcium Cancelled 8.8 8.8
Vital Signs:
Vital Signs
Temp Pulse Resp BP Pulse Ox
97.8 F 76 16 117/84 100
02/13/25 07:08 02/13/25 07:08 02/13/25 07:08 02/13/25 02:59 02/13/25 07:08
I&O
02/12/25 02/13/25 02/14/25
06:59 06:59 06:59
Intake Total 960 / 960 720 / 720
Output Total 875 / 875 900 / 900
Balance 85 / 85 -180 / -180
Review of Systems
-
History Source: Patient
All other systems: Reviewed and negative
[2025-02-13] MEDS: FARXIGA 10 MG PO (07:59)
[2025-02-13] MEDS: ENTRESTO 24 MG/26 MG 1 TAB PO ×2 (07:59→19:56)
[2025-02-13] MEDS: VITAMIN B-12 1000 MCG PO (07:59)
[2025-02-13] MEDS: VITAMIN D3 (cholecalciferol) 25 MCG PO (07:59)
[2025-02-13] MEDS: PACERONE 400 MG PO ×2 (07:59→19:56)
[2025-02-13] MEDS: ELIQUIS 5 MG PO ×2 (08:00→19:56)
[2025-02-13] MEDS: SINEMET 25-100 1 TABLET PO ×3 (08:03→15:50)
[2025-02-13] MEDS: LASIX 40 MG IV ×2 (08:05→15:46)
[2025-02-13] MEDS: TYLENOL 650 MG PO (08:07)
[2025-02-13] MEDS: TOPROL XL 100 MG PO ×2 (08:07→19:56)
[2025-02-13 11:13] VITALS: BP 102/74
--- NOTE | 2025-02-13 13:16 | W.PN.CD ---
Today's Communication / Plan
-
IV diuresis today likely p.o. tomorrow
Impression / Plan
-
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 Berry),
who presented with confusion and AF with RVR (likely due to medication non-compliance from underlying confusion), subsequently found to have new HFrEF.
Primary pin cleaner: Dr. Ross
#HFrEF
-Acute. Severe exacerbation requiring IV diuresis and close monitoring of labs/telemetry.
- IV lasix 40 mg BID likely last day; readdress tomorrow morning likely p.o. thereafter
-LVEF = 25%, elevated proBNP, orthopnea, and pulmonary congestion on CXR.
-R/L cardiac catheterization on 02/09 with LVEDP 29 mmHg and no CAD
-GDMT as hemodynamics will tolerate:
-Diuretics: Furosemide 40 mg IV daily.
-Beta ainsley: Metoprolol succinate 100 mg BID (home medication).
-ACEI/ARB/ARNi: Continue sacubitril-valsartan 24/26 mg BID. Cost acceptable per CM note.
-MRA: None at this time. We will consider starting after we have established beta ainsley/ARNi.
-SGLTi: Continue dapagliflozin 10 mg daily. Cost acceptable per CM note.
-ICD: Not currently indicated. This will need to be discussed after 90 days of GDMT with reassessment of LVEF as well as GOC (dementia/QoL).
#Permanent atrial fibrillation
-Chronic, s/p prior ablations.
-Rate control initially with diltiazem gtt, transitioned to metoprolol succinate 100 mg BID (home medication). If more rate control needed, consider digoxin or amiodarone.
-No role for rhythm control.
-[id number]: Score at least 4 (CHF, HTN, age x2, possible vascular disease).
-Oral Anticoagulation: Resume apixaban 5 mg BID this morning.
#Abnormal troponin
-Acute, likely nonischemic myocardial injury in the setting of atrial arrhythmia.
-EKG shows non-specific anterolateral/inferolateral ST/T wave abnormalities, but this appears similar to prior EKGs.
-Troponin 0.050 --> 0.050 --> 0.051.
#Confusion/Demetia
-Chronic.
-Continue donepezil.
-Management per primary service.
#Hypertension
-Chronic, stable.
-Monitor BP with reintroduction of beta ainsley and initiation of GDMT.
#Tachycardia/bradycardia syndrome
-Chronic, stable.
-Status post PPM 12/04/2022.
#Hypercholesterolemia
-Chronic, stable.
-Total cholesterol = 88, LDL = 41, HDL = 32, Triglycerides = 77.
-Continue atorvastatin 10 mg daily, fenofibrate 48 mg daily.
#Parkinson's disease
-Chronic, stable.
-Likely contributing to dementia.
-Previous reports of hallucinations (psychosis vs. Lewy body dementia?).
#Prostate cancer
-Chronic, completed XRT.
#MIKE
-Chronic, does not tolerate CPAP.
#History of tobacco abuse
-Continued cessation recommended
Subjective/Interval History:
Feels good
DATA:
Transthoracic echocardiogram, 02/08/2025:
SUMMARY
1. Normal LV size with severely reduced systolic function. Global diffuse hypokinesis.
2. LVEF is approximately 25% by visual estimation.
3. Dilated RV with reduced systolic function.
4. Mild to moderate mitral regurgitation.
5. Moderate tricuspid regurgitation. Mild to moderately elevated estimated PASP at 48 mmHg.
6. Compared to prior from November 21, 2022, LVEF is now severely reduced estimated at 25%, there is new mild to moderate mitral regurgitation, moderate tricuspid regurgitation is new, and estimated PASP is now mild to moderately elevated at 48mmHg
previously normal.
Cardiac Catheterization, 02/09/2025:
CONCLUSIONS:
1. Codominant circulation with no coronary artery disease but notable tortuosity in the LAD and ramus branches.
2. Severely elevated filling pressures (LVEDP = 29 mmHg, PCWP = 31 mmHg at 68.5 kg).
3. 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
4. Mixed, largely normal cardiac performance measurements (cardiac index = 2.12 L/min/m�, cardiac power output = 0.87 W, AVO2 difference = 7.88 volume %, Yolanda 1.15).
Physical Exam
Vital Signs/Labs
Vital Signs
Temp Pulse Resp BP Pulse Ox
97.6 F 85 17 117/84 92
02/13/25 11:09 02/13/25 11:09 02/13/25 11:09 02/13/25 02:59 02/13/25 11:09
02/12/25 02/13/25 02/14/25
06:59 06:59 06:59
Actual Weight 149 lb 14.629 oz 142 lb 3.17 oz
02/10/25 05:30
02/13/25 03:06
Magnesium 1.8 mg/dl (1.6-2.3) 02/13/25 03:06
Triglycerides 77 mg/dl (10-149) 02/08/25 04:34
LDL Cholesterol, Calc 41 mg/dl 02/08/25 04:34
VLDL Cholesterol, Calc 15 mg/dl (0-30) 02/08/25 04:34
HDL Cholesterol 32 mg/dl 02/08/25 04:34
02/07/25
15:51
Xsk-H-Xjteglfanvx Pept [id number]
Physical Exam
Constitutional: No acute distress, Comfortable and Confusion
EENT: Anicteric
Cardiovascular: Rhythm/rate is irregular
Respiratory: Respiratory effort normal and Lungs clear to auscul.
GI: Soft
Neuro/Psych: Alert and Oriented
Data Reviewed
-
Date of Service: February 13, 2025
EKG: Tracing Personally Visualized and interpreted (A-fib)
Echo: Report Reviewed by me
Labs: Labs Reviewed by me
[2025-02-13 15:03] VITALS: BP 95/72
--- NOTE | 2025-02-13 16:40 | PTCARENOTE ---
Pt received this am with no c/o of any sob. Room air sat 96%. C/o of bilateral knee pain from arthritis, relieved with tylenol. Assisted oob to the chair for meals using the walker and 1 assist. Afib/Vpaced on the monitor. Voiding clear willi in the
urinal.
[2025-02-13] MEDS: TRICOR 48 MG PO (17:16)
[2025-02-13] MEDS: LIPITOR 10 MG PO (17:16)
[2025-02-13] MEDS: DETROL LA 2 MG PO (17:16)
[2025-02-13 19:40] VITALS: BP 117/85
--- NOTE | 2025-02-13 20:35 | PTCARENOTE ---
Received pt at change of shift resting in bed. 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 pt denies any CP or SOB at this time. pt AAOx3, forgetful @ x's. Fall risk precautions maintained, bed alarm on and audible. Right radial and brachial site intact and ANSON.
pt updated on plan of care and informed to call RN for assistance ambulating and/or with any questions/concerns. Call bhat within reach.
[2025-02-13] MEDS: ARICEPT 5 MG PO (22:12)
[2025-02-13 22:15] VITALS: BP 108/76
[2025-02-14 04:06] VITALS: BP 118/85
[2025-02-14 04:25] VITALS: BMI 24.2
[2025-02-14 05:07] LABS: Blood Urea Nitrogen 50 mg/dl (9-20); Calcium 9.6 mg/dl (8.4-10.2); Carbon Dioxide 31 mmol/L (22-30); Chloride 101 mmol/L (98-107); Estimated Creatinine Clearance 30 ml/min; Glucose 102 mg/dl (70-99); Potassium 4.3 mmol/L (3.5-5.1); Sodium 137 mmol/L (135-145); eGFR 40.75
[2025-02-14 07:32] VITALS: BP 124/81
[2025-02-14] MEDS: VITAMIN D3 (cholecalciferol) 25 MCG PO (08:14)
[2025-02-14] MEDS: TOPROL XL 100 MG PO (08:14)
[2025-02-14] MEDS: VITAMIN B-12 1000 MCG PO (08:14)
[2025-02-14] MEDS: ENTRESTO 24 MG/26 MG 1 TAB PO (08:15)
[2025-02-14] MEDS: FARXIGA 10 MG PO (08:15)
[2025-02-14] MEDS: ELIQUIS 5 MG PO (08:15)
[2025-02-14] MEDS: PACERONE 400 MG PO (08:15)
--- NOTE | 2025-02-14 08:15 | W.PN.CD ---
Today's Communication / Plan
-
- Change IV lasix to PO today
- Plan for EP evaluation in 3 months with ECHO
- Continue Amiodarone for 3 months. Plan to stop after AVJ ablation
Impression / Plan
-
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 Berry),
who presented with confusion and AF with RVR (likely due to medication non-compliance from underlying confusion), subsequently found to have new HFrEF.
Primary security specialist: Dr. Ross
#HFrEF
-Acute. Severe exacerbation requiring IV diuresis and close monitoring of labs/telemetry.
- IV lasix 40 mg BID likely last day; readdress tomorrow morning likely p.o. thereafter
-LVEF = 25%, elevated proBNP, orthopnea, and pulmonary congestion on CXR.
-R/L cardiac catheterization on 02/09 with LVEDP 29 mmHg and no CAD
-GDMT as hemodynamics will tolerate:
-Diuretics: Furosemide 40 mg IV daily. switch to PO today.
-Beta ainsley: Metoprolol succinate 100 mg BID (home medication).
-ACEI/ARB/ARNi: Continue sacubitril-valsartan 24/26 mg BID. Cost acceptable per CM note.
-MRA: None at this time. We will consider starting after we have established beta ainsley/ARNi.
-SGLTi: Continue dapagliflozin 10 mg daily. Cost acceptable per CM note.
-ICD: Not currently indicated. This will need to be discussed after 90 days of GDMT with reassessment of LVEF as well as GOC (dementia/QoL).
#Permanent atrial fibrillation
-Chronic, s/p prior ablations.
-Rate control initially with diltiazem gtt, transitioned to metoprolol succinate 100 mg BID (home medication).
-Currently on amiodarone. With difficulty to control heart rates, will continue Amiodarone for 3 months. 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
-No role for rhythm control.
-[id number]: Score at least 4 (CHF, HTN, age x2, possible vascular disease).
-Oral Anticoagulation: Resume apixaban 5 mg BID this morning.
#Abnormal troponin
-Acute, likely nonischemic myocardial injury in the setting of atrial arrhythmia.
-EKG shows non-specific anterolateral/inferolateral ST/T wave abnormalities, but this appears similar to prior EKGs.
-Troponin 0.050 --> 0.050 --> 0.051.
#Confusion/Demetia
-Chronic.
-Continue donepezil.
-Management per primary service.
#Hypertension
-Chronic, stable.
-Monitor BP with reintroduction of beta ainsley and initiation of GDMT.
#Tachycardia/bradycardia syndrome
-Chronic, stable.
-Status post PPM 12/04/2022.
#Hypercholesterolemia
-Chronic, stable.
-Total cholesterol = 88, LDL = 41, HDL = 32, Triglycerides = 77.
-Continue atorvastatin 10 mg daily, fenofibrate 48 mg daily.
#Parkinson's disease
-Chronic, stable.
-Likely contributing to dementia.
-Previous reports of hallucinations (psychosis vs. Lewy body dementia?).
#Prostate cancer
-Chronic, completed XRT.
#MIKE
-Chronic, does not tolerate CPAP.
#History of tobacco abuse
-Continued cessation recommended
Subjective/Interval History:
Feels good
DATA:
Transthoracic echocardiogram, 02/08/2025:
SUMMARY
1. Normal LV size with severely reduced systolic function. Global diffuse hypokinesis.
2. LVEF is approximately 25% by visual estimation.
3. Dilated RV with reduced systolic function.
4. Mild to moderate mitral regurgitation.
5. Moderate tricuspid regurgitation. Mild to moderately elevated estimated PASP at 48 mmHg.
6. Compared to prior from November 21, 2022, LVEF is now severely reduced estimated at 25%, there is new mild to moderate mitral regurgitation, moderate tricuspid regurgitation is new, and estimated PASP is now mild to moderately elevated at 48mmHg
previously normal.
Cardiac Catheterization, 02/09/2025:
CONCLUSIONS:
1. Codominant circulation with no coronary artery disease but notable tortuosity in the LAD and ramus branches.
2. Severely elevated filling pressures (LVEDP = 29 mmHg, PCWP = 31 mmHg at 68.5 kg).
3. 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
4. Mixed, largely normal cardiac performance measurements (cardiac index = 2.12 L/min/m�, cardiac power output = 0.87 W, AVO2 difference = 7.88 volume %, Yolanda 1.15).
Physical Exam
Vital Signs/Labs
Vital Signs
Temp Pulse Resp BP Pulse Ox
98.7 F 72 20 118/85 96
02/14/25 07:31 02/14/25 06:00 02/14/25 07:31 02/14/25 04:06 02/14/25 07:31
02/13/25 02/14/25 02/15/25
06:59 06:59 06:59
Actual Weight 64.5 kg 63.8 kg
02/10/25 05:30
02/14/25 04:16
Magnesium 1.8 mg/dl (1.6-2.3) 02/13/25 03:06
Triglycerides 77 mg/dl (10-149) 02/08/25 04:34
LDL Cholesterol, Calc 41 mg/dl 02/08/25 04:34
VLDL Cholesterol, Calc 15 mg/dl (0-30) 02/08/25 04:34
HDL Cholesterol 32 mg/dl 02/08/25 04:34
02/07/25
15:51
Jjv-P-Dralysorpzt Pept [id number]
Physical Exam
Constitutional: No acute distress and Comfortable
EENT: Anicteric and Moist mucous membranes
Cardiovascular: Rhythm & rate is regular, Pedal edema is absent and JVD pressure is normal
Respiratory: Respiratory effort normal and Lungs clear to auscul.
GI: Soft and Distention absent
Neuro/Psych: Alert, Oriented, AO x 3 and Tremors
Other: Cardiac Device Site
Data Reviewed
-
Date of Service: February 14, 2025
Medical Decision Making: Reviewed Test Results, Test Interpretation and Review of Case with other Provider
EKG: Tracing Personally Visualized and interpreted (AFib with V paced rhythm)
Echo: Report Reviewed by me
X-Ray/CT/US/MRI/NUC/PET: Image Personally Visualized and interpreted
Labs: Labs Reviewed by me
Old Records: Reviewed
[2025-02-14] MEDS: SINEMET 25-100 1 TABLET PO ×2 (08:17→11:33)
[2025-02-14] MEDS: LASIX IV (09:27)
[2025-02-14] MEDS: LASIX 80 MG PO (09:29)
[2025-02-14 10:34] VITALS: BP 127/81
[2025-02-14 11:00] VITALS: BP 127/81; PULSE 76; O2SAT 95
[2025-02-14 11:01] VITALS: BP 91/73
--- NOTE | 2025-02-14 12:24 | W.PN.HOSP.TC ---
Addendum entered and electronically signed by Dick Clinton MD 02/14/25 13:44:
Discussed with cardiology recommending amiodarone 40. mg twice daily for total of 4 days and then 200 mg daily. Otherwise okay for discharge.
Per CM-Had bed at SNF.
Repeat BMP at SNF.
More than 30 minutes spent in discharge including
Final examination of the patient
Summarizing hospital stay
Instructions for continuing care to all relevant caregivers
Preparation of discharge records, prescriptions, and referral forms
Total time spent (in minutes): 53
Original Note:
Today's Communication/Plan
-
await placement
elevated cr
monitor BP
Assessment / Plan
Assessment / Plan
Gen-awake, alert, confused, NAD
HEENT-NC, AT, anicteric, clear oral mm
Neck-supple
CV-reg, no M, +S1/S2
Lungs-clear B/L
Abd-soft, NT, ND
Ext-no edema
Musculoskeletal-no cyanosis, clubbing
Skin-warm and dry
Neuro-grossly non-focal
Psych-calm, cooperative
Acute heart failure reduced EF exacerbation -
Cardiology following. Echocardiogram shows LVEF 25%, dilated RV with reduced systolic function, global diffuse hypokinesis. Mild to moderate MR. Moderate TR.
Appears to be a new diagnosis of heart failure.
BNP 13,800. Chest x-ray with mild pulmonary vascular congestion, trace bilateral pleural fluid.
Left and right heart catheterization done 02/09 showed codominant circulation with no CAD but notable tortuosity in the LAD and ramus branches. Severely elevated filling pressures.
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 PCWP 31.
GDMT-Cont farxiga, entresto, lasix, tricor, toprol., statin
Clinically improved
now on lasix 80mg daily. Monitor Cr.
AARON on CKD 3A - Elevated creatinine could be due to sacubitril/valsartan. Enalapril discontinued on admission.
Monitor closely on diuretics.
not retaining
off IV diuretics now.
Troponin elevation -suspect due to acute nonischemic myocardial injury due to rapid heart rate.
Permanent atrial fibrillation -presentation with RVR. Rates now improved. Continue Eliquis, metoprolol. Off Cardizem drip now.
Has had multiple cardioversions in the past as well as ablation.
TSH 1.14.
on amiodarone 400mg BID-Plan to continue 3 months. probably need to reduce dose on discharge?
Hyponatremia -present on admission. Resolved.
Tachybradycardia syndrome -s/p permanent pacemaker, 12/04/2022.
Parkinson's disease -stable. Continue Sinemet.
Dementia -suspect Lewy body dementia. Spoke with family and they mention that he does have increasing confusion over the past few weeks and months, hallucinations. Recommend outpatient follow-up with his neurologist, Dr. Sterling.
Hyperlipidemia -atorvastatin, Tricor.
Essential hypertension -stable.
History of prostate cancer -gets leuprolide injections every 3 months. Had radiation in the past.
Urinalysis shows hematuria with RBCs and positive blood. No evidence of pyuria or infection. Urine culture dated 02/07 no growth.
BPH
MIKE -intolerant of CPAP.
Diverticulosis
Former smoker
Full code
Dispo -PT is recommending SNF on discharge. CM aware. Await placement.
Anticipated Discharge: Within 24 hours
Subjective/Interval History
-
Date of Service: February 14, 2025
States feeling weak
passing increasing amount of urine
Objective Data
-
Labs:
Laboratory Results
02/14/25
04:16
Sodium 137
Potassium 4.3
Chloride 101
Carbon Dioxide 31 H
BUN 50 H
Creatinine 1.7 H
Glucose 102 H
Calcium 9.6
Vital Signs:
Vital Signs
Temp Pulse Resp BP Pulse Ox
97.8 F 76 17 124/81 95
02/14/25 10:51 02/14/25 10:51 02/14/25 10:51 02/14/25 09:29 02/14/25 10:51
I&O
02/13/25 02/14/25 02/15/25
06:59 06:59 06:59
Intake Total 720 / 720 600 / 600
Output Total 900 / 900 1600 / 1600 100 / 100
Balance -180 / -180 -1000 / -1000 -100 / -100
--- NOTE | 2025-02-14 13:43 | W.DCSUMMARY ---
Discharge Summary
Discharge Data
Date of Admission: 02/07/25
Date of Discharge: 02/14/25
-
Pending Results: No
Hospital Course
79-year-old male past medical history of atrial fibrillation, tachybradycardia syndrome status post pacemaker, hypertension, hyperlipidemia, CKD was presented with rapid ventricular response.. Patient was found to be in acute heart failure
exacerbation. Troponin mildly elevated. Patient was eval by cardiology. Patient was started on IV diuresis. Mentation improved. Heart rate improved. Patient was started on amiodarone. Plan will be amiodarone 400 mg twice daily for additional
24 hours then decrease to 200 mg daily on discharge. Status post cardiac catheterization with elevated left ventricular end-diastolic pressure. No CAD noted. Echo with EF of 25%. Patient with significant improvement after IV diuresis and now on
80 mg p.o. Lasix daily. Patient was started on goal-directed medical therapy with Nathan Galeano. Patient creatinine continued to fluctuate. Patient was continued on Eliquis. Patient was eval by physical and Occupational Therapy with plan to
discharge to senior living facility.
Discharge Plan
-
Patient Disposition: [facility]
Discharge Diagnosis/Procedures: Acute HFrEF
cardiac catheterization
Acute kidney injury on chronic kidney disease
Nonischemic myocardial injury
Permanent atrial fibrillation with rapid ventricular response
Hyponatremia
Diet: Low Cholesterol and Restrict fluids to 48 oz
Activity: As tolerated
Driving Restrictions: Not until seen by your Dr
Blood Work: BMP in 3 to 5 days via primary doctor or cardiology.
Stand Alone Forms: DC Instructions- Cath/EP Lab
Referrals:
[facility] [Outside]
[facility] [Outside]
Augie Flowers CRNP [Family Provider, Family Practice] - in one week
Maricel Fontana CRNP [Specified Professional Personl, Cardiology] - 02/23/25 1:40 pm
Additional Discharge Medication Instructions: Take amiodarone 400 mg twice daily for additional 24 hours then 200 mg daily
Norvasc and enalapril was discontinued
Prescriptions:
New
furosemide 40 mg Tablet
80 mg PO DAILY Qty: 60 0RF
sacubitril-valsartan 24-26 mg Tablet
1 tab PO BID Qty: 60 0RF
dapagliflozin propanediol 10 mg Tablet
10 mg PO DAILY Qty: 30 0RF
amiodarone [Pacerone] 200 mg Tablet
400 mg PO BID Qty: 4 0RF
amiodarone 200 mg tablet
200 mg PO DAILY Qty: 30 0RF
Rx Instructions:
Start on 02/16/25
Continued
atorvastatin 10 MG tablet
10 mg PO QPM
fenofibrate nanocrystallized 48 MG tablet
48 mg PO QPM
Eliquis 5 MG tablet
5 mg PO BID
metoprolol succinate [Toprol XL] 50 mg tablet extended release 24 hr
100 mg PO BID
donepezil 5 mg Tablet
5 mg PO HS
cyanocobalamin (vitamin B-12) 1,000 mcg Tablet
1,000 mcg PO DAILY
carbidopa-levodopa 25-100 mg Tablet
1 tab PO TID@08,12,16
Eligard (3 month) 22.5 mg Syringe
22.5 mg SC [id number]
cholecalciferol (vitamin D3) [Vitamin D3] 25 mcg (1,000 unit) Tablet
25 mcg PO DAILY
mirabegron [Myrbetriq] 25 mg Tablet Extended Release 24 Hr
25 mg PO QPM
Discontinued
enalapril maleate 20 MG tablet
20 mg PO BID
amlodipine [Norvasc] 2.5 mg Tablet
2.5 mg PO DAILY
Discharge Orders:
Discharge Patient (As Directed); Ordered 02/14/25
Ordered By: Dick Clinton
Care Plan Goals
Care Plan Goals:
Problem: Readiness for enhanced knowledge related to diagnosis and treatment plan
Goal: Understand your diagnosis and treatment plan needs, including medications if applicable.
Instructions: Know your diagnosis, underlying causes and treatment plan options, including medications if applicable. Consult with your health care team to learn about your diagnosis and treatment plan, including medications if applicable.
Discharge Date and Time
Discharge Date/Time: 02/14/25 15:30
Print Language: VINCENTIAN
--- NOTE | 2025-02-14 14:26 | CM ---
Reviewed chart. Received message [facility] they will not have a bed. [facility], they are reviewing. Left message for [facility] Admissions. Telephone call to
sister, Jovita to review needing more options for SNF/Rehab. She has selected a referral to be made to [facility]. Telephone call to [facility] SNF Liaison to make the referral. Sent referral. Beds are available at [facility] and [facility]. Reviewed options with Mr. Olea and his sister and they have selected [facility]. Updated [facility] Admission. The report number is ([phone]) and the fax number is ([phone]). Unit sec. to make ambulance arrangements
for transfer. Medical work-up in progress. The discharge plan is to go to [facility] when medically stable.
[2025-02-14 14:52] VITALS: BP 97/67
--- NOTE | 2025-02-14 15:30 | PTCARENOTE ---
~6980-7002: Handoff report received from nightshift RN. Pt AOx4, forgetful at times. Bed alarm/ chair alarm in place for safety. Afib with frequent V paced beats 70s-80s on tele, SBP 120s, RA satting 96%. Pt denies pain at this time. Ax1 waith
walker OOB to bathroom. BM this AM and then OOB to chair. Dr. Christensen in to see patient. IV lasix changed to PO today. All needs met at this time, call bhat within reach.
~8009-4281: Patient OOB in chair. Chair alarm on for safety. Worked with PT. Pt slightly hypotensive with some slight dizziness with standing. Pt does not c/o pain at this time. All needs met, call bhat within reach.
~7304-3618: Patient sister at bedside. CM in to speak with family and discuss placement options.[facility] chosen. Ambulance trnasport set up for 151. Report called to [facility]ara 1430.
~[id number]: Transport arrived, PIV and tele box removed. Patient left in stable condition via ambulance stretcher.
== END 2025-02-14 15:30 | DRG 286 ==
LOC: IVU 20:24
PROVIDERS: Clinical Nurse Specialist Family Health; Emergency Medicine; Hospitalist; Internal Medicine Cardiovascular Disease; Nurse Practitioner; Nurse Practitioner Family; ADMITTING PHYSICIAN Internal Medicine; ATTENDING PHYSICIAN Hospitalist; EMERGENCY PHYSICIAN Emergency Medicine; FAMILY PHYSICIAN Nurse Practitioner Family; OTHER PHYSICIAN Internal Medicine Cardiovascular Disease
PROC: 4A023N8 Measurement of Cardiac Sampling and Pressure, Bilateral, Percutaneous Approach (ICD-10-PCS; 2025-02-09)
PROC: B2111ZZ Fluoroscopy of Multiple Coronary Arteries using Low Osmolar Contrast (ICD-10-PCS; 2025-02-09)
DX: I13.0 Hypertensive heart and chronic kidney disease with heart failure and stage 1 through stage 4 chronic kidney disease, or unspecified chronic kidney disease (principal); I50.21 Acute systolic (congestive) heart failure; E87.1 Hypo-osmolality and hyponatremia; N17.9 Acute kidney failure, unspecified; I48.21 Permanent atrial fibrillation; F02.82 Dementia in other diseases classified elsewhere, unspecified severity, with psychotic disturbance; R44.3 Hallucinations, unspecified; F02.84 Dementia in other diseases classified elsewhere, unspecified severity, with anxiety; I5A Non-ischemic myocardial injury (non-traumatic); N18.9 Chronic kidney disease, unspecified; Z79.01 Long term (current) use of anticoagulants; Z79.899 Other long term (current) drug therapy; G20.A1 Parkinson's disease without dyskinesia, without mention of fluctuations; Z91.199 Patient's noncompliance with other medical treatment and regimen due to unspecified reason; Z87.891 Personal history of nicotine dependence; Z95.0 Presence of cardiac pacemaker; G47.33 Obstructive sleep apnea (adult) (pediatric); I49.5 Sick sinus syndrome; N40.0 Benign prostatic hyperplasia without lower urinary tract symptoms; R73.03 Prediabetes; Z85.46 Personal history of malignant neoplasm of prostate; Z92.3 Personal history of irradiation; R39.15 Urgency of urination; K21.9 Gastro-esophageal reflux disease without esophagitis; Z80.42 Family history of malignant neoplasm of prostate; E78.00 Pure hypercholesterolemia, unspecified; I27.20 Pulmonary hypertension, unspecified; I42.9 Cardiomyopathy, unspecified
CPT/HCPCS: 70450; 71046; 80048; 80053; 80061; 81003; 81015; 83735; 83880; 84443; 84484; 85025; 85027; 86803; 87086; 93005; 93306; 96361; 96374; 96376; 97116; 97163; 97166; 97530; 99285

== ENCOUNTER → 2025-02-17 11:29 | Outpatient (REF) | payer OTHER, MEDICARE, SELFPAY ==
[2025-02-17 12:35] LABS: Hematocrit 44.6 % (39.0-52.0); Hemoglobin 14.4 g/dL (13.0-18.0); Mean Corp Hgb Conc. 32.3 g/dL (33.0-37.0); Mean Corpuscular Volume 99.3 fL (80.0-94.0); Nucleated Red Blood Cells % 0 % (-); Platelet Count 152 10^3/uL (130-400); Red Cell Dist. Width 18.1 % (11.5-14.5)
[2025-02-17 13:06] LABS: Blood Urea Nitrogen 49 mg/dl (9-20); Calcium 8.2 mg/dl (8.4-10.2); Carbon Dioxide 33 mmol/L (22-30); Chloride 98 mmol/L (98-107); Glucose 88 mg/dl (70-99); Potassium 3.6 mmol/L (3.5-5.1); Sodium 134 mmol/L (135-145); eGFR 47.36
== END ==
LOC: OLABP 11:29
PROVIDERS: ATTENDING PHYSICIAN Family Medicine
DX: I50.23 Acute on chronic systolic (congestive) heart failure (principal); C61 Malignant neoplasm of prostate; E78.5 Hyperlipidemia, unspecified; F41.9 Anxiety disorder, unspecified; G20.A1 Parkinson's disease without dyskinesia, without mention of fluctuations; I10 Essential (primary) hypertension; I48.0 Paroxysmal atrial fibrillation; I49.5 Sick sinus syndrome; K57.90 Diverticulosis of intestine, part unspecified, without perforation or abscess without bleeding; N40.0 Benign prostatic hyperplasia without lower urinary tract symptoms; N18.31 Chronic kidney disease, stage 3a
CPT/HCPCS: 36415; 80048; 85025

== ENCOUNTER → 2025-03-16 09:23 | Outpatient (REF) | payer MEDICARE, SELFPAY ==
[2025-03-16 11:42] LABS: Vitamin B12 556 pg/ml (239-931)
== END ==
LOC: OLABLV 09:23
PROVIDERS: ATTENDING PHYSICIAN Psychiatry & Neurology Behavioral Neurology & Neuropsychiatry
DX: G62.9 Polyneuropathy, unspecified (principal); D51.9 Vitamin B12 deficiency anemia, unspecified
CPT/HCPCS: 36415; 82607